=== PATIENT | male | born 1965 | race Caucasian/White ===

== ENCOUNTER 2021-11-06 17:29 | Emergency (ER) | payer OTHER ==
[~2021-11-06] VITALS: Ht 175.3 cm; Wt 100.0 kg
[~2021-11-06 17:29] MED LIST: CEPH-558 PO
[2021-11-06 18:36] VITALS: BP 146/82
[2021-11-06] MEDS ORDERED: HALOPERIDOL 5 MG TABLET PO ONE (19:15)
[2021-11-06 19:57] LABS: AMPHET/METH SCREEN,URINE NEGATIVE (NEGATIVE); BARBITURATE SCREEN, URINE NEGATIVE (NEGATIVE); BENZODIAZEPINES SCREEN,URINE POSITIVE (NEGATIVE); CANNABINOID SCREEN,URINE NEGATIVE (NEGATIVE); COCAINE SCREEN,URINE NEGATIVE (NEGATIVE); METHADONE SCREEN, URINE POSITIVE (NEGATIVE); OPIATE SCREEN,URINE NEGATIVE (NEGATIVE)
[2021-11-06 19:58] LABS: PHENCYCLIDINE SCREEN,URINE NEGATIVE (NEGATIVE)
== END 2021-11-06 20:13 | disposition home or self-care (01) ==
LOC: EMS 17:29
DX: F29 Unspecified psychosis not due to a substance or known physiological condition (principal); F15.10 Other stimulant abuse, uncomplicated; F17.210 Nicotine dependence, cigarettes, uncomplicated; F11.90 Opioid use, unspecified, uncomplicated; Z87.19 Personal history of other diseases of the digestive system; Z86.79 Personal history of other diseases of the circulatory system
CPT/HCPCS: 99284

== ENCOUNTER 2021-12-18 13:52 | Emergency (ER) | payer OTHER ==
[~2021-12-18] VITALS: Ht 175.3 cm; Wt 95.5 kg
[2021-12-18] MEDS ORDERED: METOCLOPRAMIDE HCL 5 MG/ML 2 ML VIAL IVP ONE (16:00)
[2021-12-18] MEDS ORDERED: DiphenhydrAMINE HCL 50 MG/ML VIAL IVP ONE (16:00)
[2021-12-18] MEDS ORDERED: SODIUM CHLORIDE 0.9% 1,000 ML IV ONE (16:00)
[2021-12-18 19:38] VITALS: BP 127/95
[2021-12-18] MEDS ORDERED: HYDR25TA PO (19:39)
[2021-12-18] MEDS ORDERED: HYDROCHLOROTHIAZIDE 25 MG TABLET PO ONE (19:45)
== END 2021-12-18 20:22 | disposition home or self-care (01) ==
LOC: EMS 13:52
DX: R51.9 Headache, unspecified (principal); I10 Essential (primary) hypertension; F11.90 Opioid use, unspecified, uncomplicated; F17.210 Nicotine dependence, cigarettes, uncomplicated
CPT/HCPCS: 70450; 96361; 96374; 96375; 99284; J1200; J2765; J7030

== ENCOUNTER 2022-07-19 14:51 | Emergency (ER) | payer OTHER ==
[~2022-07-19] VITALS: Ht 175.3 cm; Wt 104.5 kg
[~2022-07-19 14:51] MED LIST changes: +HYDR25TA PO
[2022-07-19 14:52] VITALS: BP 150/108
[2022-07-19] MEDS ORDERED: METH5SOL3 PO (15:40)
[2022-07-19 16:00] LABS: BASOPHILS % (AUTO) 0.7 % (0.0-2.0); EOSINOPHILS % (AUTO) 0.7 % (1.0-6.0); HEMATOCRIT 41.7 % (41-53); HEMOGLOBIN 14.1 g/dL (13.5-17.5); LYMPHOCYTES # (AUTO) 1.4 K/uL (1.0-4.8); LYMPHOCYTES % (AUTO) 15.8 % (22.0-44.0); MEAN CORPUSCULAR HGB CONC 33.9 G/dL (31.0-37.0); MEAN CORPUSCULAR VOLUME 91 fL (80-100); MONOCYTES # (AUTO) 1.2 K/uL (0.1-1.0); MONOCYTES % (AUTO) 13.2 % (2.0-9.0); NEUTROPHILS # (AUTO) 6.4 K/uL (1.8-7.7); NEUTROPHILS % (AUTO) 69.6 % (40.0-70.0); PLATELET COUNT (AUTO) 171 K/uL (150-450); RED BLOOD CELL COUNT(AUTO) 4.56 MIL/uL (4.50-5.90); RED CELL DISTRIBUTION WIDTH 13.4 % (11.5-14.5)
[2022-07-19 16:05] LABS: ANION GAP 7 mmol/L (8-16); CALCIUM, TOTAL 8.7 mg/dL (8.8-10.5); CARBON DIOXIDE 25 mmol/L (22-29); CHLORIDE 103 mmol/L (98-107); CREATININE 1.17 mg/dL (0.60-1.30); GLOMERULAR FILTR. RATE CALC > 60 mL/min (>60); GLUCOSE,RANDOM 105 mg/dL (70-110); POTASSIUM 3.4 mmol/L (3.5-5.1); SODIUM SERUM 135 mmol/L (136-145); UREA NITROGEN, BLOOD 18 mg/dL (7-18)
[2022-07-19 16:11] LABS: ALANINE AMINOTRANSFERASE 37 U/L (12-78); ALBUMIN 3.4 g/dL (3.4-5.0); ALKALINE PHOSPHATASE 97 U/L (46-116); ASPARTATE AMINOTRANSFERASE 41 U/L (15-37); BILIRUBIN,TOTAL 0.5 mg/dL (0.1-1.0); TOTAL PROTEIN, SERUM 8.4 g/dL (6.4-8.2)
[2022-07-19] MEDS ORDERED: OLANZapine 5 MG TABLET PO ONE (17:00)
== END 2022-07-19 18:12 | disposition home or self-care (01) ==
LOC: EMS 14:55
DX: F32.A Depression, unspecified (principal); F20.9 Schizophrenia, unspecified; F17.210 Nicotine dependence, cigarettes, uncomplicated; F11.90 Opioid use, unspecified, uncomplicated; I21.9 Acute myocardial infarction, unspecified
CPT/HCPCS: 99284; 80053; 85025; 36415; G0480

== ENCOUNTER 2022-08-16 01:15 | Emergency (ER) | payer OTHER ==
[~2022-08-16] VITALS: Ht 175.3 cm; Wt 118.2 kg
[~2022-08-16 01:15] MED LIST changes: -CEPH-558 PO; -HYDR25TA PO; +METH5SOL3 PO
[2022-08-16 01:53] VITALS: BP 148/108
[2022-08-16 02:04] LABS: BASOPHILS % (AUTO) 0.7 % (0.0-2.0); EOSINOPHILS % (AUTO) 0.1 % (1.0-6.0); HEMATOCRIT 45.7 % (41-53); LYMPHOCYTES # (AUTO) 0.8 K/uL (1.0-4.8); LYMPHOCYTES % (AUTO) 10.1 % (22.0-44.0); MEAN CORPUSCULAR HEMOGLOBIN 31.5 pg (26.0-34.0); MEAN CORPUSCULAR VOLUME 90 fL (80-100); MONOCYTES # (AUTO) 0.4 K/uL (0.1-1.0); MONOCYTES % (AUTO) 4.7 % (2.0-9.0); NEUTROPHILS # (AUTO) 6.4 K/uL (1.8-7.7); NEUTROPHILS % (AUTO) 84.4 % (40.0-70.0); PLATELET COUNT (AUTO) 158 K/uL (150-450); RED BLOOD CELL COUNT(AUTO) 5.08 MIL/uL (4.50-5.90); RED CELL DISTRIBUTION WIDTH 13.8 % (11.5-14.5)
[2022-08-16 02:10] LABS: ANION GAP 10 mmol/L (8-16); CALCIUM, TOTAL 9.5 mg/dL (8.8-10.5); CARBON DIOXIDE 26 mmol/L (22-29); CHLORIDE 104 mmol/L (98-107); CREATININE 1.16 mg/dL (0.60-1.30); GLOMERULAR FILTR. RATE CALC > 60 mL/min (>60); GLUCOSE,RANDOM 116 mg/dL (70-110); POTASSIUM 4.1 mmol/L (3.5-5.1); SODIUM SERUM 140 mmol/L (136-145); UREA NITROGEN, BLOOD 18 mg/dL (7-18)
[2022-08-16] MEDS ORDERED: LORazepam 1 MG TABLET PO ONE (02:15)
[2022-08-16 02:16] LABS: ALANINE AMINOTRANSFERASE 38 U/L (12-78); ALKALINE PHOSPHATASE 83 U/L (46-116); ASPARTATE AMINOTRANSFERASE 35 U/L (15-37); BILIRUBIN,TOTAL 0.7 mg/dL (0.1-1.0); CREATINE KINASE, TOTAL ONLY 74 U/L (39-308); TOTAL PROTEIN, SERUM 9.3 g/dL (6.4-8.2)
[2022-08-16 02:18] LABS: COVID AG,FIA SOURCE NASOPHARYNGEAL
[2022-08-16 02:46] LABS: B-TYPE NATRIURETIC PEPTIDE 38 pg/mL (0-100)
== END 2022-08-16 03:05 | disposition home or self-care (01) ==
LOC: EMS 01:16
DX: F41.9 Anxiety disorder, unspecified (principal); F32.A Depression, unspecified; F20.9 Schizophrenia, unspecified; R07.89 Other chest pain; F17.210 Nicotine dependence, cigarettes, uncomplicated; I25.2 Old myocardial infarction; F11.90 Opioid use, unspecified, uncomplicated; Z20.822 Contact with and (suspected) exposure to COVID-19
CPT/HCPCS: 99285; 71045; 87426; 80053; 82550; 83880; 84484; 85025; 36415; 93005; G0480

== ENCOUNTER 2023-04-07 06:44 | Inpatient (IN) | payer MEDICAID, OTHER ==
[2023-04-07] VITALS (10 sets, daily range): BP systolic 102–173; BP diastolic 66–89; PULSE 64–88; RESP 17–19; TEMP 97.6–97.8; O2SAT 93–99
[~2023-04-07] VITALS: Ht 175.3 cm; Wt 108.0 kg
[2023-04-07 07:46] LABS: COVID AG,FIA SOURCE NASAL SWAB
[2023-04-07 08:12] LABS: BASOPHILS % (AUTO) 0.4 % (0.0-2.0); EOSINOPHILS % (AUTO) 2.3 % (1.0-6.0); HEMATOCRIT 42.4 % (41-53); HEMOGLOBIN 14.4 g/dL (13.5-17.5); LYMPHOCYTES # (AUTO) 1.5 K/uL (1.0-4.8); LYMPHOCYTES % (AUTO) 16.2 % (22.0-44.0); MEAN CORPUSCULAR HEMOGLOBIN 31.5 pg (26.0-34.0); MEAN CORPUSCULAR VOLUME 93 fL (80-100); MONOCYTES # (AUTO) 0.9 K/uL (0.1-1.0); NEUTROPHILS # (AUTO) 6.5 K/uL (1.8-7.7); NEUTROPHILS % (AUTO) 71.1 % (40.0-70.0); PLATELET COUNT (AUTO) 171 K/uL (150-450); RED BLOOD CELL COUNT(AUTO) 4.57 MIL/uL (4.50-5.90); RED CELL DISTRIBUTION WIDTH 13.3 % (11.5-14.5); WHITE BLOOD COUNT (AUTO) 9.1 K/uL (4.5-11.0)
[2023-04-07 08:17] LABS: ANION GAP 10 mmol/L (8-16); CALCIUM, TOTAL 8.9 mg/dL (8.8-10.5); CARBON DIOXIDE 25 mmol/L (22-29); CHLORIDE 102 mmol/L (98-107); CREATININE 1.04 mg/dL (0.60-1.30); GLOMERULAR FILTR. RATE CALC > 60 mL/min (>60); GLUCOSE,RANDOM 95 mg/dL (70-110); POTASSIUM 3.4 mmol/L (3.5-5.1); SODIUM SERUM 137 mmol/L (136-145); UREA NITROGEN, BLOOD 25 mg/dL (7-18)
[2023-04-07 08:23] LABS: ALANINE AMINOTRANSFERASE 24 U/L (12-78); ALBUMIN 3.2 g/dL (3.4-5.0); ALKALINE PHOSPHATASE 85 U/L (46-116); ASPARTATE AMINOTRANSFERASE 25 U/L (15-37); BILIRUBIN,TOTAL 0.8 mg/dL (0.1-1.0); LIPASE 14 U/L (16-77); TOTAL PROTEIN, SERUM 7.3 g/dL (6.4-8.2)
[2023-04-07 08:25] LABS: LACTIC ACID 1.3 mmol/L (0.4-2.0); TROPONIN I-HIGH SENSITIVITY 10 ng/L (<76)
[2023-04-07 08:30] LABS: ALCOHOL, BLOOD (SERUM) < 3 mg/dL (0-10)
[2023-04-07 08:30] LABS: SARS-COV2 (COVID) ANTIGEN,FIA Negative (Negative)
[2023-04-07] MEDS ORDERED: POTASSIUM CHLORIDE 10% 40 MEQ/30 ML LIQUID UDCUP PO ONE (09:00)
[2023-04-07] MEDS ORDERED: ChlordiazePOXIDE HCL 25 MG CAPSULE PO ONE (09:00)
[2023-04-07] MEDS: THIAMINE 100 MG TABLET PO SCH (09:25)
[2023-04-07] MEDS: MULTIVITAMINS, THERAPEUTIC TABLET PO SCH (09:25)
[2023-04-07] MEDS: FOLIC ACID 1 MG TABLET PO SCH ×2 (09:25→12:59)
[2023-04-07] MEDS ORDERED: PNEUMOCOCCAL VACCINE POLYVALENT 0.5 ML SYRINGE [PPSV23] IM. ONE (13:15)
[2023-04-07] MEDS ORDERED: ACETAMINOPHEN 325 MG TABLET PO PRN (15:00)
[2023-04-07] MEDS ORDERED: PETROLATUM,WHITE 28 GM JELLY TP PRN (15:00)
[2023-04-07] MEDS ORDERED: CloNIDine HCL 0.1 MG TABLET PO PRN (15:00)
[2023-04-07] MEDS ORDERED: IBUPROFEN 400 MG TABLET PO PRN (15:00)
[2023-04-07] MEDS ORDERED: GuaiFENesin/D-METHORPHAN [SUGAR-FREE] 200-20MG/10 ML SYRUP UDCUP PO PRN (15:00)
[2023-04-07] MEDS ORDERED: DOCUSATE SODIUM 100 MG CAPSULE PO PRN (15:00)
[2023-04-07] MEDS ORDERED: ALBUTEROL SULFATE HFA 90 MCG/PUFF 8 GM INHALER IH PRN (15:00)
[2023-04-07] MEDS ORDERED: NICOTINE 14 MG/24 HOUR PATCH TD PRN (15:00)
[2023-04-07] MEDS ORDERED: ONDANSETRON HCL 4 MG TABLET PO PRN (15:00)
[2023-04-07] MEDS ORDERED: MAG HYDROX/ALUMINUM HYD/SIMETH ES 30 ML SUSPENSION UDCUP PO PRN (15:00)
[2023-04-07] MEDS: LOPERAMIDE HCL 2 MG CAPSULE PO PRN (16:28)
[2023-04-07] MEDS: ChlordiazePOXIDE HCL 25 MG CAPSULE PO PRN ×2 (16:28→21:06)
[2023-04-08 03:50] VITALS: BP 128/78; PULSE 77; RESP 18; TEMP 97.6; O2SAT 97
[2023-04-08 04:52] VITALS: BP 135/85; PULSE 77; RESP 18; TEMP 97.6; O2SAT 98
[2023-04-08] MEDS: ChlordiazePOXIDE HCL 25 MG CAPSULE PO PRN (04:57)
[2023-04-08] MEDS ORDERED: ChlordiazePOXIDE HCL 25 MG CAPSULE PO PRN (07:00)
[2023-04-08 07:50] VITALS: BP 114/64; PULSE 68; RESP 18; TEMP 97.9; O2SAT 100
[2023-04-08 08:07] VITALS: BP 114/64; PULSE 68; RESP 18; TEMP 97.9; O2SAT 100
[2023-04-08] MEDS: THIAMINE 100 MG TABLET PO SCH (08:38)
[2023-04-08] MEDS: MULTIVITAMINS, THERAPEUTIC TABLET PO SCH (08:38)
[2023-04-08] MEDS: ChlordiazePOXIDE HCL 25 MG CAPSULE PO SCH ×4 (08:38→20:35)
[2023-04-08] MEDS: LOPERAMIDE HCL 2 MG CAPSULE PO PRN ×2 (08:50→16:50)
[2023-04-08] MEDS: METHADONE HCL 10 MG/5 ML SOLUTION ORAL.SYG PO SCH (09:00)
[2023-04-08 11:50] VITALS: BP 121/75; PULSE 69; RESP 18; TEMP 98.2; O2SAT 99
[2023-04-08] MEDS ORDERED: POTASSIUM CHLORIDE 20 MEQ ER TABLET PO ONE (16:00)
[2023-04-08 20:08] VITALS: BP 138/80; PULSE 64; RESP 18; TEMP 98; O2SAT 98
[2023-04-09 08:29] VITALS: BP 142/86; PULSE 68; RESP 18; TEMP 98.1; O2SAT 96
[2023-04-09 08:34] LABS: CHOL/HDL RATIO 2.4 (4.2-7.3); POTASSIUM 3.5 mmol/L (3.5-5.1)
[2023-04-09] MEDS: METHADONE HCL 10 MG/5 ML SOLUTION ORAL.SYG PO SCH (09:01)
[2023-04-09] MEDS: FOLIC ACID 1 MG TABLET PO SCH (09:02)
[2023-04-09] MEDS: MULTIVITAMINS, THERAPEUTIC TABLET PO SCH (09:02)
[2023-04-09] MEDS: ChlordiazePOXIDE HCL 25 MG CAPSULE PO SCH ×4 (09:02→20:23)
[2023-04-09] MEDS: THIAMINE 100 MG TABLET PO SCH (09:02)
[2023-04-09 09:24] LABS: THYROID STIMULATING HORMONE 1.08 uIU/mL (0.36-3.74)
[2023-04-09 21:12] VITALS: BP 150/77; PULSE 18; RESP 18; TEMP 97.5; O2SAT 60
[2023-04-10] MEDS ORDERED: ChlordiazePOXIDE HCL 10 MG CAPSULE PO PRN (07:00)
[2023-04-10 08:10] LABS: APPEARANCE,URINE TURBID (CLEAR); BILIRUBIN,URINE NEGATIVE (NEGATIVE); COLOR,URINE ORANGE (YELLOW); GLUCOSE, URINE (UA) NEGATIVE (NEGATIVE); KETONES,URINE NEGATIVE (NEGATIVE); LEUKOCYTE ESTERASE ,URINE NEGATIVE (NEGATIVE); NITRATE,URINE NEGATIVE (NEGATIVE); OCCULT BLOOD,URINE NEGATIVE (NEGATIVE); PROTEIN,URINE 30-70 mg/dL (NEGATIVE); SPECIFIC GRAVITIY, URINE 1.035 (1.003-1.030)
[2023-04-10 08:16] LABS: ALCOHOL, URINE DRUG SCREEN NEGATIVE (NEGATIVE); AMPHET/METH SCREEN,URINE POSITIVE (NEGATIVE); BARBITURATE SCREEN, URINE NEGATIVE (NEGATIVE); BENZODIAZEPINES SCREEN,URINE POSITIVE (NEGATIVE); CANNABINOID SCREEN,URINE NEGATIVE (NEGATIVE); COCAINE SCREEN,URINE NEGATIVE (NEGATIVE); METHADONE SCREEN, URINE POSITIVE (NEGATIVE); OPIATE SCREEN,URINE NEGATIVE (NEGATIVE); PHENCYCLIDINE SCREEN,URINE NEGATIVE (NEGATIVE)
[2023-04-10 08:40] VITALS: BP 140/82; PULSE 88; RESP 18; TEMP 97.9; O2SAT 77
[2023-04-10] MEDS: MULTIVITAMINS, THERAPEUTIC TABLET PO SCH (09:39)
[2023-04-10] MEDS: ChlordiazePOXIDE HCL 10 MG CAPSULE PO SCH ×4 (09:39→21:28)
[2023-04-10] MEDS: THIAMINE 100 MG TABLET PO SCH (09:39)
[2023-04-10] MEDS: FOLIC ACID 1 MG TABLET PO SCH (09:39)
[2023-04-10] MEDS: METHADONE HCL 10 MG/5 ML SOLUTION ORAL.SYG PO SCH (09:52)
[2023-04-10 20:01] VITALS: BP 138/60; PULSE 91; RESP 17; TEMP 97.6; O2SAT 99
[2023-04-11] MEDS: FOLIC ACID 1 MG TABLET PO SCH (08:02)
[2023-04-11] MEDS: THIAMINE 100 MG TABLET PO SCH (08:02)
[2023-04-11] MEDS: METHADONE HCL 10 MG/5 ML SOLUTION ORAL.SYG PO SCH (08:02)
[2023-04-11] MEDS: MULTIVITAMINS, THERAPEUTIC TABLET PO SCH (08:02)
[2023-04-11 08:42] VITALS: BP 141/74; PULSE 65; RESP 18; TEMP 98.1; O2SAT 99
[2023-04-11] MEDS: ChlordiazePOXIDE HCL 10 MG CAPSULE PO PRN ×2 (16:46→23:15)
[2023-04-11 20:28] VITALS: BP 136/85; PULSE 65; RESP 18; TEMP 97.8; O2SAT 96
[2023-04-12 08:06] VITALS: BP 117/87; PULSE 67; RESP 19; TEMP 97.9; O2SAT 97
[2023-04-12] MEDS: MULTIVITAMINS, THERAPEUTIC TABLET PO SCH (08:54)
[2023-04-12] MEDS: THIAMINE 100 MG TABLET PO SCH (08:54)
[2023-04-12] MEDS: FOLIC ACID 1 MG TABLET PO SCH (08:54)
[2023-04-12] MEDS: METHADONE HCL 10 MG/5 ML SOLUTION ORAL.SYG PO SCH (08:54)
[2023-04-12 22:02] VITALS: BP 140/89; PULSE 67; RESP 18; TEMP 97.7; O2SAT 98
[2023-04-12] MEDS: HALOPERIDOL 5 MG TABLET PO PRN (22:20)
[2023-04-13] MEDS: METHADONE HCL 10 MG/5 ML SOLUTION ORAL.SYG PO SCH (08:31)
[2023-04-13] MEDS: MULTIVITAMINS, THERAPEUTIC TABLET PO SCH (08:32)
[2023-04-13] MEDS: THIAMINE 100 MG TABLET PO SCH (08:32)
[2023-04-13] MEDS: FOLIC ACID 1 MG TABLET PO SCH (08:32)
[2023-04-13 09:10] VITALS: BP 111/88; PULSE 69; RESP 17; TEMP 97.5; O2SAT 98
[2023-04-13 20:03] VITALS: BP 112/69; PULSE 66; RESP 18; TEMP 97.9; O2SAT 98
[2023-04-13] MEDS: MIRTAZAPINE 15 MG TABLET PO SCH (20:28)
[2023-04-14 08:12] VITALS: BP 118/76; PULSE 74; RESP 17; TEMP 97.8; O2SAT 96
[2023-04-14] MEDS: THIAMINE 100 MG TABLET PO SCH (08:36)
[2023-04-14] MEDS: MULTIVITAMINS, THERAPEUTIC TABLET PO SCH (08:36)
[2023-04-14] MEDS: FOLIC ACID 1 MG TABLET PO SCH (08:36)
[2023-04-14] MEDS: METHADONE HCL 10 MG/5 ML SOLUTION ORAL.SYG PO SCH (08:37)
[2023-04-14] MEDS: MAGNESIUM HYDROXIDE SUSPENSION 30 ML UDCUP PO PRN (08:45)
[2023-04-14] MEDS: MIRTAZAPINE 15 MG TABLET PO SCH (20:38)
[2023-04-14 21:24] VITALS: BP 125/69; PULSE 70; RESP 16; TEMP 97.7; O2SAT 95
[2023-04-15] MEDS: THIAMINE 100 MG TABLET PO SCH (08:07)
[2023-04-15] MEDS: MULTIVITAMINS, THERAPEUTIC TABLET PO SCH (08:07)
[2023-04-15] MEDS: FOLIC ACID 1 MG TABLET PO SCH (08:08)
[2023-04-15] MEDS: METHADONE HCL 10 MG/5 ML SOLUTION ORAL.SYG PO SCH (08:08)
[2023-04-15 08:14] VITALS: BP 117/66; PULSE 66; RESP 18; TEMP 97.8; O2SAT 97
[2023-04-15 20:27] VITALS: BP 122/47; PULSE 77; RESP 18; TEMP 97.9; O2SAT 97
[2023-04-15] MEDS: MIRTAZAPINE 15 MG TABLET PO SCH (20:57)
[2023-04-16 08:05] VITALS: BP 126/90; PULSE 62; RESP 18; TEMP 97.8; O2SAT 95
[2023-04-16] MEDS: THIAMINE 100 MG TABLET PO SCH (08:34)
[2023-04-16] MEDS: MULTIVITAMINS, THERAPEUTIC TABLET PO SCH (08:34)
[2023-04-16] MEDS: FOLIC ACID 1 MG TABLET PO SCH (08:34)
[2023-04-16] MEDS: METHADONE HCL 10 MG/5 ML SOLUTION ORAL.SYG PO SCH (08:35)
[2023-04-16] MEDS: HALOPERIDOL 5 MG TABLET PO PRN (16:50)
[2023-04-16 20:13] VITALS: BP 123/82; PULSE 74; RESP 18; TEMP 98.2; O2SAT 98
[2023-04-16] MEDS: MIRTAZAPINE 15 MG TABLET PO SCH (20:43)
[2023-04-17] MEDS: MULTIVITAMINS, THERAPEUTIC TABLET PO SCH (07:53)
[2023-04-17] MEDS: THIAMINE 100 MG TABLET PO SCH (07:53)
[2023-04-17] MEDS: FOLIC ACID 1 MG TABLET PO SCH (07:53)
[2023-04-17] MEDS: METHADONE HCL 10 MG/5 ML SOLUTION ORAL.SYG PO SCH (07:54)
[2023-04-17 08:10] VITALS: BP 117/78; PULSE 66; RESP 18; TEMP 97.7; O2SAT 96
[2023-04-17] MEDS: MIRTAZAPINE 15 MG TABLET PO SCH (20:16)
[2023-04-17 20:17] VITALS: BP 119/19; PULSE 73; RESP 19; TEMP 98.1; O2SAT 93
[2023-04-18 08:39] VITALS: BP 138/76; PULSE 70; RESP 16; TEMP 97.2; O2SAT 96
[2023-04-18] MEDS: THIAMINE 100 MG TABLET PO SCH (08:41)
[2023-04-18] MEDS: MULTIVITAMINS, THERAPEUTIC TABLET PO SCH (08:41)
[2023-04-18] MEDS: FOLIC ACID 1 MG TABLET PO SCH (08:41)
[2023-04-18] MEDS: METHADONE HCL 10 MG/5 ML SOLUTION ORAL.SYG PO SCH (10:06)
[2023-04-18] MEDS: MAGNESIUM HYDROXIDE SUSPENSION 30 ML UDCUP PO PRN (16:43)
[2023-04-18 20:05] VITALS: BP 131/70; PULSE 67; RESP 18; TEMP 97.9; O2SAT 96
[2023-04-18] MEDS: MIRTAZAPINE 15 MG TABLET PO SCH (20:32)
[2023-04-18] MEDS: HALOPERIDOL 5 MG TABLET PO PRN (21:31)
[2023-04-19 08:20] VITALS: BP 148/96; PULSE 75; RESP 16; TEMP 97.6; O2SAT 96
[2023-04-19] MEDS: MULTIVITAMINS, THERAPEUTIC TABLET PO SCH (08:28)
[2023-04-19] MEDS: THIAMINE 100 MG TABLET PO SCH (08:28)
[2023-04-19] MEDS: FOLIC ACID 1 MG TABLET PO SCH (08:28)
[2023-04-19] MEDS: METHADONE HCL 10 MG/5 ML SOLUTION ORAL.SYG PO SCH (08:29)
[2023-04-19 20:13] VITALS: BP 122/74; PULSE 68; RESP 20; TEMP 98; O2SAT 94
[2023-04-19] MEDS: MIRTAZAPINE 15 MG TABLET PO SCH (20:14)
[2023-04-19] MEDS: HALOPERIDOL 5 MG TABLET PO PRN (20:53)
[2023-04-20 08:25] VITALS: BP 119/92; PULSE 78; RESP 18; TEMP 98.7; O2SAT 90
[2023-04-20] MEDS: MULTIVITAMINS, THERAPEUTIC TABLET PO SCH (08:51)
[2023-04-20] MEDS: METHADONE HCL 10 MG/5 ML SOLUTION ORAL.SYG PO SCH (08:51)
[2023-04-20] MEDS: THIAMINE 100 MG TABLET PO SCH (08:52)
[2023-04-20] MEDS: FOLIC ACID 1 MG TABLET PO SCH (08:52)
[2023-04-20 20:02] VITALS: BP 111/70; PULSE 68; RESP 18; TEMP 98.1; O2SAT 96
[2023-04-20] MEDS: MIRTAZAPINE 15 MG TABLET PO SCH (21:11)
[2023-04-21 08:17] VITALS: BP 129/88; PULSE 74; RESP 19; TEMP 98; O2SAT 96
[2023-04-21] MEDS: THIAMINE 100 MG TABLET PO SCH (09:45)
[2023-04-21] MEDS: MULTIVITAMINS, THERAPEUTIC TABLET PO SCH (09:45)
[2023-04-21] MEDS: FOLIC ACID 1 MG TABLET PO SCH (09:45)
[2023-04-21] MEDS: METHADONE HCL 10 MG/5 ML SOLUTION ORAL.SYG PO SCH (16:13)
[2023-04-21 20:23] VITALS: BP 130/85; PULSE 70; RESP 17; TEMP 97.9; O2SAT 99
[2023-04-21] MEDS: MIRTAZAPINE 15 MG TABLET PO SCH (21:44)
[2023-04-22 08:45] VITALS: BP 134/97; PULSE 86; RESP 17; TEMP 98.2; O2SAT 96
[2023-04-22] MEDS: THIAMINE 100 MG TABLET PO SCH (09:01)
[2023-04-22] MEDS: FOLIC ACID 1 MG TABLET PO SCH (09:01)
[2023-04-22] MEDS: MULTIVITAMINS, THERAPEUTIC TABLET PO SCH (09:01)
[2023-04-22] MEDS: METHADONE HCL 10 MG/5 ML SOLUTION ORAL.SYG PO SCH (09:01)
[2023-04-22] MEDS ORDERED: FOLI-130 PO (11:17)
[2023-04-22] MEDS ORDERED: THIA100T80 PO (11:17)
[2023-04-22] MEDS ORDERED: MIRT-89 PO (11:17)
== END 2023-04-22 19:00 | disposition home or self-care (01) | DRG 751 ==
LOC: EMS 06:45 → B2S 10:18
PROVIDERS: ADMIT Psychiatry & Neurology Child & Adolescent Psychiatry; ATTEND Psychiatry & Neurology Child & Adolescent Psychiatry
DX: F33.2 Major depressive disorder, recurrent severe without psychotic features (principal); E44.0 Moderate protein-calorie malnutrition; K74.60 Unspecified cirrhosis of liver; E87.6 Hypokalemia; F20.9 Schizophrenia, unspecified; F41.9 Anxiety disorder, unspecified; Z20.822 Contact with and (suspected) exposure to COVID-19; F17.210 Nicotine dependence, cigarettes, uncomplicated; G47.00 Insomnia, unspecified; F10.239 Alcohol dependence with withdrawal, unspecified; Z59.00 Homelessness unspecified; I25.2 Old myocardial infarction; Z79.899 Other long term (current) drug therapy; Z68.35 Body mass index [BMI] 35.0-35.9, adult
CPT/HCPCS: 80053; 80061; 80307; 81003; 83036; 83605; 83690; 84132; 84443; 84484; 85025; 99285; G0480

== ENCOUNTER 2023-05-21 14:13 | Inpatient (IN) | payer MEDICAID, OTHER ==
[~2023-05-21] VITALS: Ht 175.3 cm; Wt 105.9 kg
[~2023-05-21 14:13] MED LIST changes: +FOLI-130 PO; -METH5SOL3 PO; +MIRT-89 PO; +THIA100T80 PO
[2023-05-21] MEDS ORDERED: LORazepam 2 MG TABLET PO PRN (15:00)
[2023-05-21] MEDS ORDERED: ChlordiazePOXIDE HCL 25 MG CAPSULE PO PRN (15:30)
[2023-05-21 16:06] LABS: COVID AG,FIA SOURCE NASAL SWAB
[2023-05-21 16:10] LABS: APPEARANCE,URINE CLEAR (CLEAR); BILIRUBIN,URINE NEGATIVE (NEGATIVE); COLOR,URINE LIGHT YELLOW (YELLOW); GLUCOSE, URINE (UA) NEGATIVE (NEGATIVE); KETONES,URINE NEGATIVE (NEGATIVE); LEUKOCYTE ESTERASE ,URINE NEGATIVE (NEGATIVE); NITRATE,URINE NEGATIVE (NEGATIVE); OCCULT BLOOD,URINE NEGATIVE (NEGATIVE); PROTEIN,URINE NEGATIVE (NEGATIVE); SPECIFIC GRAVITIY, URINE 1.011 (1.003-1.030)
[2023-05-21] MEDS: HALOPERIDOL 5 MG TABLET PO PRN (16:13)
[2023-05-21] MEDS ORDERED: LORazepam 2 MG TABLET PO ONE (16:15)
[2023-05-21] MEDS ORDERED: OMEPRAZOLE 20 MG CAPSULE PO ONE (16:15)
[2023-05-21] MEDS ORDERED: MAG HYDROX/ALUMINUM HYD/SIMETH ES 30 ML SUSPENSION UDCUP PO ONE (16:15)
[2023-05-21 16:16] LABS: SARS-COV2 (COVID) ANTIGEN,FIA Negative (Negative)
[2023-05-21] MEDS ORDERED: METH5SOL3 PO (16:21)
[2023-05-21 17:38] LABS: HEMOGLOBIN 16.3 g/dL (13.5-17.5); LYMPHOCYTES # (AUTO) 1.5 K/uL (1.0-4.8); LYMPHOCYTES % (AUTO) 21.4 % (22.0-44.0); MEAN CORPUSCULAR HGB CONC 34.6 G/dL (31.0-37.0); MEAN CORPUSCULAR VOLUME 93 fL (80-100); MONOCYTES # (AUTO) 0.7 K/uL (0.1-1.0); MONOCYTES % (AUTO) 9.4 % (2.0-9.0); NEUTROPHILS # (AUTO) 4.7 K/uL (1.8-7.7); NEUTROPHILS % (AUTO) 67.2 % (40.0-70.0); PLATELET COUNT (AUTO) 152 K/uL (150-450); RED BLOOD CELL COUNT(AUTO) 5.08 MIL/uL (4.50-5.90); RED CELL DISTRIBUTION WIDTH 13.7 % (11.5-14.5)
[2023-05-21 17:42] LABS: ANION GAP 4 mmol/L (8-16); CALCIUM, TOTAL 9.1 mg/dL (8.8-10.5); CARBON DIOXIDE 30 mmol/L (22-29); CHLORIDE 103 mmol/L (98-107); CREATININE 1.02 mg/dL (0.60-1.30); GLOMERULAR FILTR. RATE CALC > 60 mL/min (>60); GLUCOSE,RANDOM 81 mg/dL (70-110); POTASSIUM 3.9 mmol/L (3.5-5.1); SODIUM SERUM 137 mmol/L (136-145); UREA NITROGEN, BLOOD 13 mg/dL (7-18)
[2023-05-21 17:47] LABS: ALANINE AMINOTRANSFERASE 24 U/L (12-78); ALBUMIN 3.6 g/dL (3.4-5.0); ALKALINE PHOSPHATASE 99 U/L (46-116); ASPARTATE AMINOTRANSFERASE 28 U/L (15-37); BILIRUBIN,TOTAL 0.7 mg/dL (0.1-1.0); TOTAL PROTEIN, SERUM 8.5 g/dL (6.4-8.2)
[2023-05-21 18:00] LABS: ALCOHOL, BLOOD (SERUM) < 3 mg/dL (0-10)
[2023-05-21] MEDS: ZOLPIDEM TARTRATE 10 MG TABLET PO PRN (21:42)
[2023-05-21 22:28] VITALS: BP 117/89; PULSE 88; RESP 18; TEMP 97.5; O2SAT 98
[2023-05-21 22:30] VITALS: BP 117/89; PULSE 88; RESP 18; TEMP 97.5; O2SAT 98
[2023-05-21] MEDS ORDERED: PNEUMOCOCCAL VACCINE POLYVALENT 0.5 ML SYRINGE [PPSV23] IM. ONE (22:45)
[2023-05-21] MEDS ORDERED: INFLUENZA VIRUS VACCINE QVS 2023-24 (6MO+)/PF 60 MCG/0.5 ML SYRINGE IM. ONE (22:45)
[2023-05-22] VITALS (7 sets, daily range): BP systolic 128–147; BP diastolic 76–89; PULSE 58–71; RESP 17–19; TEMP 97.1–98.2; O2SAT 94–98
[2023-05-22] MEDS ORDERED: NICOTINE POLACRILEX 2 MG LOZENGE PO PRN (02:45)
[2023-05-22] MEDS ORDERED: ChlordiazePOXIDE HCL 25 MG CAPSULE PO PRN (07:00)
[2023-05-22] MEDS: MULTIVITAMINS, THERAPEUTIC TABLET PO SCH (08:42)
[2023-05-22] MEDS: THIAMINE 100 MG TABLET PO SCH (08:42)
[2023-05-22] MEDS: ChlordiazePOXIDE HCL 25 MG CAPSULE PO SCH ×4 (08:42→20:29)
[2023-05-22] MEDS: FOLIC ACID 1 MG TABLET PO SCH (08:42)
[2023-05-22] MEDS: OLANZapine 5 MG TABLET PO SCH (20:29)
[2023-05-22] MEDS: MIRTAZAPINE 15 MG TABLET PO SCH (20:29)
[2023-05-22 22:02] LABS: ALCOHOL, URINE DRUG SCREEN POSITIVE (NEGATIVE); AMPHET/METH SCREEN,URINE NEGATIVE (NEGATIVE); BARBITURATE SCREEN, URINE NEGATIVE (NEGATIVE); BENZODIAZEPINES SCREEN,URINE POSITIVE (NEGATIVE); CANNABINOID SCREEN,URINE NEGATIVE (NEGATIVE); COCAINE SCREEN,URINE NEGATIVE (NEGATIVE); METHADONE SCREEN, URINE POSITIVE (NEGATIVE); OPIATE SCREEN,URINE NEGATIVE (NEGATIVE); PHENCYCLIDINE SCREEN,URINE NEGATIVE (NEGATIVE)
[2023-05-23] VITALS (7 sets, daily range): BP systolic 112–136; BP diastolic 56–74; PULSE 64–86; RESP 17–18; TEMP 97.2–98.3; O2SAT 96–98
[2023-05-23] MEDS: FOLIC ACID 1 MG TABLET PO SCH (08:28)
[2023-05-23] MEDS: MULTIVITAMINS, THERAPEUTIC TABLET PO SCH (08:28)
[2023-05-23] MEDS: THIAMINE 100 MG TABLET PO SCH (08:28)
[2023-05-23] MEDS: ChlordiazePOXIDE HCL 25 MG CAPSULE PO SCH ×4 (08:28→20:24)
[2023-05-23] MEDS ORDERED: METHADONE HCL 10 MG TABLET PO SCH (09:00)
[2023-05-23] MEDS: METHADONE HCL 10 MG/5 ML SOLUTION ORAL.SYG PO SCH (09:43)
[2023-05-23] MEDS: MIRTAZAPINE 15 MG TABLET PO SCH (20:24)
[2023-05-23] MEDS: OLANZapine 5 MG TABLET PO SCH (20:24)
[2023-05-24] MEDS ORDERED: ChlordiazePOXIDE HCL 10 MG CAPSULE PO PRN (07:00)
[2023-05-24 08:44] VITALS: BP 132/71; PULSE 63; RESP 17; TEMP 98.3; O2SAT 98
[2023-05-24] MEDS: MULTIVITAMINS, THERAPEUTIC TABLET PO SCH (08:53)
[2023-05-24] MEDS: ChlordiazePOXIDE HCL 10 MG CAPSULE PO SCH ×4 (08:53→20:26)
[2023-05-24] MEDS: THIAMINE 100 MG TABLET PO SCH (08:53)
[2023-05-24] MEDS: FOLIC ACID 1 MG TABLET PO SCH (08:53)
[2023-05-24] MEDS: METHADONE HCL 10 MG/5 ML SOLUTION ORAL.SYG PO SCH (08:58)
[2023-05-24] MEDS: HALOPERIDOL 5 MG TABLET PO PRN (09:02)
[2023-05-24] MEDS: RisperiDONE 1 MG TABLET PO SCH ×2 (11:30→16:56)
[2023-05-24 15:28] VITALS: BP 126/68; PULSE 70; RESP 17; TEMP 98.4; O2SAT 98
[2023-05-24] MEDS: MIRTAZAPINE 15 MG TABLET PO SCH (20:26)
[2023-05-24] MEDS: ZOLPIDEM TARTRATE 10 MG TABLET PO PRN (20:48)
[2023-05-24 22:15] VITALS: BP 117/77; PULSE 99; RESP 18; TEMP 98.4; O2SAT 98
[2023-05-25] MEDS ORDERED: ChlordiazePOXIDE HCL 10 MG CAPSULE PO PRN (07:00)
[2023-05-25] MEDS: FOLIC ACID 1 MG TABLET PO SCH (09:12)
[2023-05-25] MEDS: THIAMINE 100 MG TABLET PO SCH (09:12)
[2023-05-25] MEDS: MULTIVITAMINS, THERAPEUTIC TABLET PO SCH (09:12)
[2023-05-25] MEDS: RisperiDONE 1 MG TABLET PO SCH ×2 (09:12→16:40)
[2023-05-25] MEDS: METHADONE HCL 10 MG/5 ML SOLUTION ORAL.SYG PO SCH (09:13)
[2023-05-25 10:56] VITALS: BP 115/81; PULSE 97; RESP 18; TEMP 98.1; O2SAT 96
[2023-05-25 20:47] VITALS: BP 143/74; PULSE 81; RESP 17; TEMP 98.2; O2SAT 77
[2023-05-25] MEDS: ZOLPIDEM TARTRATE 10 MG TABLET PO PRN (22:11)
[2023-05-25] MEDS: MIRTAZAPINE 15 MG TABLET PO SCH (22:15)
[2023-05-26] MEDS: THIAMINE 100 MG TABLET PO SCH (08:13)
[2023-05-26] MEDS: FOLIC ACID 1 MG TABLET PO SCH (08:13)
[2023-05-26] MEDS: METHADONE HCL 10 MG/5 ML SOLUTION ORAL.SYG PO SCH (08:13)
[2023-05-26] MEDS: MULTIVITAMINS, THERAPEUTIC TABLET PO SCH (08:13)
[2023-05-26] MEDS: RisperiDONE 1 MG TABLET PO SCH ×2 (08:13→16:36)
[2023-05-26 08:33] VITALS: BP 131/85; PULSE 81; RESP 18; TEMP 98.9; O2SAT 96
[2023-05-26 20:08] VITALS: BP 124/73; PULSE 82; RESP 18; TEMP 97.8
[2023-05-26] MEDS: ZOLPIDEM TARTRATE 10 MG TABLET PO PRN (20:20)
[2023-05-26] MEDS: MIRTAZAPINE 15 MG TABLET PO SCH (20:20)
[2023-05-27 08:46] VITALS: BP 128/74; PULSE 78; RESP 18; TEMP 98.4; O2SAT 99
[2023-05-27] MEDS: MULTIVITAMINS, THERAPEUTIC TABLET PO SCH (09:20)
[2023-05-27] MEDS: RisperiDONE 1 MG TABLET PO SCH ×2 (09:20→16:14)
[2023-05-27] MEDS: FOLIC ACID 1 MG TABLET PO SCH (09:21)
[2023-05-27] MEDS: THIAMINE 100 MG TABLET PO SCH (09:21)
[2023-05-27] MEDS: METHADONE HCL 10 MG/5 ML SOLUTION ORAL.SYG PO SCH (09:44)
[2023-05-27 15:34] VITALS: BP 111/63; PULSE 77; RESP 17; TEMP 97.8; O2SAT 98
[2023-05-27] MEDS: MIRTAZAPINE 15 MG TABLET PO SCH (20:00)
[2023-05-27 23:07] VITALS: BP 116/65; PULSE 80; RESP 18; TEMP 98.2; O2SAT 96
[2023-05-28 08:07] VITALS: BP 106/67; PULSE 75; RESP 18; TEMP 97.7; O2SAT 95
[2023-05-28] MEDS: THIAMINE 100 MG TABLET PO SCH (09:13)
[2023-05-28] MEDS: FOLIC ACID 1 MG TABLET PO SCH (09:13)
[2023-05-28] MEDS: RisperiDONE 1 MG TABLET PO SCH ×2 (09:13→16:12)
[2023-05-28] MEDS: MULTIVITAMINS, THERAPEUTIC TABLET PO SCH (09:14)
[2023-05-28] MEDS: METHADONE HCL 10 MG/5 ML SOLUTION ORAL.SYG PO SCH (09:14)
[2023-05-28] MEDS: HALOPERIDOL 5 MG TABLET PO PRN (16:12)
[2023-05-28 20:00] VITALS: BP 121/75; PULSE 71; RESP 18; TEMP 97.6; O2SAT 95
[2023-05-28] MEDS: MIRTAZAPINE 15 MG TABLET PO SCH (21:45)
[2023-05-29] MEDS: RisperiDONE 1 MG TABLET PO SCH ×2 (08:31→16:02)
[2023-05-29] MEDS: MULTIVITAMINS, THERAPEUTIC TABLET PO SCH (08:31)
[2023-05-29] MEDS: THIAMINE 100 MG TABLET PO SCH (08:31)
[2023-05-29] MEDS: FOLIC ACID 1 MG TABLET PO SCH (08:32)
[2023-05-29] MEDS: METHADONE HCL 10 MG/5 ML SOLUTION ORAL.SYG PO SCH (08:34)
[2023-05-29 08:54] VITALS: BP 123/79; PULSE 70; RESP 17; TEMP 98; O2SAT 95
[2023-05-29] MEDS: HALOPERIDOL 5 MG TABLET PO PRN (17:32)
[2023-05-29] MEDS: MIRTAZAPINE 15 MG TABLET PO SCH (20:00)
[2023-05-29 20:42] VITALS: BP 127/78; PULSE 67; RESP 18; TEMP 98; O2SAT 97
[2023-05-30] MEDS: HALOPERIDOL 5 MG TABLET PO PRN (03:08)
[2023-05-30 08:13] VITALS: BP 130/91; PULSE 75; RESP 17; TEMP 98; O2SAT 98
[2023-05-30] MEDS: MULTIVITAMINS, THERAPEUTIC TABLET PO SCH (08:43)
[2023-05-30] MEDS: THIAMINE 100 MG TABLET PO SCH (08:44)
[2023-05-30] MEDS: RisperiDONE 1 MG TABLET PO SCH ×2 (08:44→16:20)
[2023-05-30] MEDS: FOLIC ACID 1 MG TABLET PO SCH (08:44)
[2023-05-30] MEDS: METHADONE HCL 10 MG/5 ML SOLUTION ORAL.SYG PO SCH (08:46)
[2023-05-30] MEDS: MIRTAZAPINE 15 MG TABLET PO SCH (20:16)
[2023-05-30 20:19] VITALS: BP 126/80; PULSE 78; RESP 17; TEMP 98; O2SAT 99
[2023-05-30] MEDS: ZOLPIDEM TARTRATE 10 MG TABLET PO PRN (20:35)
[2023-05-31 08:12] VITALS: BP 146/90; PULSE 75; RESP 18; TEMP 98; O2SAT 97
[2023-05-31] MEDS: METHADONE HCL 10 MG/5 ML SOLUTION ORAL.SYG PO SCH (08:16)
[2023-05-31] MEDS: MULTIVITAMINS, THERAPEUTIC TABLET PO SCH (08:17)
[2023-05-31] MEDS: RisperiDONE 1 MG TABLET PO SCH ×2 (08:17→16:38)
[2023-05-31] MEDS: FOLIC ACID 1 MG TABLET PO SCH (08:18)
[2023-05-31] MEDS: THIAMINE 100 MG TABLET PO SCH (08:18)
[2023-05-31] MEDS: MIRTAZAPINE 15 MG TABLET PO SCH (20:34)
[2023-05-31 21:34] VITALS: BP 116/80; PULSE 88; RESP 18; TEMP 97.8; O2SAT 99
[2023-06-01 08:46] VITALS: BP 129/62; PULSE 68; RESP 18; TEMP 97.5; O2SAT 91
[2023-06-01] MEDS: METHADONE HCL 10 MG/5 ML SOLUTION ORAL.SYG PO SCH (09:45)
[2023-06-01] MEDS: MULTIVITAMINS, THERAPEUTIC TABLET PO SCH (09:45)
[2023-06-01] MEDS: THIAMINE 100 MG TABLET PO SCH (09:45)
[2023-06-01] MEDS: FOLIC ACID 1 MG TABLET PO SCH (09:45)
[2023-06-01] MEDS: RisperiDONE 1 MG TABLET PO SCH ×2 (09:45→17:45)
[2023-06-01 20:00] VITALS: BP 139/78; PULSE 75; RESP 16; TEMP 97; O2SAT 98
[2023-06-01] MEDS: MIRTAZAPINE 15 MG TABLET PO SCH (20:12)
[2023-06-02] MEDS: FOLIC ACID 1 MG TABLET PO SCH (08:23)
[2023-06-02] MEDS: METHADONE HCL 10 MG/5 ML SOLUTION ORAL.SYG PO SCH (08:23)
[2023-06-02] MEDS: RisperiDONE 1 MG TABLET PO SCH ×2 (08:24→16:10)
[2023-06-02] MEDS: THIAMINE 100 MG TABLET PO SCH (08:24)
[2023-06-02 08:32] VITALS: BP 125/80; PULSE 64; RESP 17; TEMP 97.8; O2SAT 95
[2023-06-02] MEDS: MULTIVITAMINS, THERAPEUTIC TABLET PO SCH (09:34)
[2023-06-02] MEDS: HydrOXYzine PAMOATE 25 MG CAPSULE PO PRN (16:10)
[2023-06-02 20:48] VITALS: BP 134/87; PULSE 86; RESP 18; TEMP 97.9
[2023-06-02] MEDS: MIRTAZAPINE 15 MG TABLET PO SCH (21:16)
[2023-06-03] MEDS: MULTIVITAMINS, THERAPEUTIC TABLET PO SCH (08:24)
[2023-06-03] MEDS: RisperiDONE 1 MG TABLET PO SCH ×2 (08:25→16:26)
[2023-06-03] MEDS: FOLIC ACID 1 MG TABLET PO SCH (08:25)
[2023-06-03] MEDS: METHADONE HCL 10 MG/5 ML SOLUTION ORAL.SYG PO SCH (08:25)
[2023-06-03] MEDS: THIAMINE 100 MG TABLET PO SCH (08:25)
[2023-06-03 08:26] VITALS: BP 126/77; PULSE 71; RESP 17; TEMP 97.4; O2SAT 98
[2023-06-03 08:29] VITALS: BP 126/77; PULSE 71; RESP 17; TEMP 97.4; O2SAT 98
[2023-06-03] MEDS: MIRTAZAPINE 15 MG TABLET PO SCH (20:27)
[2023-06-03 21:20] VITALS: BP 121/83; PULSE 80; RESP 18; TEMP 98.2; O2SAT 95
[2023-06-04] MEDS: HydrOXYzine PAMOATE 25 MG CAPSULE PO PRN ×3 (00:06→20:54)
[2023-06-04] MEDS: RisperiDONE 1 MG TABLET PO SCH ×2 (08:18→16:23)
[2023-06-04] MEDS: THIAMINE 100 MG TABLET PO SCH (08:19)
[2023-06-04] MEDS: MULTIVITAMINS, THERAPEUTIC TABLET PO SCH (08:19)
[2023-06-04] MEDS: FOLIC ACID 1 MG TABLET PO SCH (08:19)
[2023-06-04] MEDS ORDERED: METHADONE HCL 10 MG/5 ML SOLUTION ORAL.SYG PO SCH (09:00)
[2023-06-04 09:53] VITALS: BP 129/80; PULSE 69; RESP 16; TEMP 97.6; O2SAT 95
[2023-06-04] MEDS: HALOPERIDOL 5 MG TABLET PO PRN (16:46)
[2023-06-04] MEDS: MIRTAZAPINE 15 MG TABLET PO SCH (20:08)
[2023-06-04 20:49] VITALS: BP 140/97; PULSE 77; RESP 18; TEMP 97.7; O2SAT 98
[2023-06-05 02:03] VITALS: BP 130/79; RESP 18
[2023-06-05] MEDS: HALOPERIDOL 5 MG TABLET PO PRN (02:03)
[2023-06-05] MEDS: FOLIC ACID 1 MG TABLET PO SCH (08:42)
[2023-06-05] MEDS: HydrOXYzine PAMOATE 25 MG CAPSULE PO PRN ×3 (08:42→21:45)
[2023-06-05] MEDS: THIAMINE 100 MG TABLET PO SCH (08:42)
[2023-06-05] MEDS: MULTIVITAMINS, THERAPEUTIC TABLET PO SCH (08:42)
[2023-06-05] MEDS: RisperiDONE 1 MG TABLET PO SCH ×2 (08:42→16:12)
[2023-06-05 09:20] VITALS: BP 134/77; PULSE 66; RESP 17; TEMP 97.7; O2SAT 96
[2023-06-05 20:37] VITALS: BP 163/92; PULSE 77; RESP 17; TEMP 97; O2SAT 100
[2023-06-05 20:46] VITALS: BP 153/94
[2023-06-05] MEDS: MIRTAZAPINE 15 MG TABLET PO SCH (21:45)
[2023-06-06 08:40] VITALS: BP 135/95; PULSE 74; RESP 18; TEMP 97.6; O2SAT 97
[2023-06-06] MEDS: FOLIC ACID 1 MG TABLET PO SCH (08:44)
[2023-06-06] MEDS: MULTIVITAMINS, THERAPEUTIC TABLET PO SCH (08:44)
[2023-06-06] MEDS: RisperiDONE 1 MG TABLET PO SCH (08:44)
[2023-06-06] MEDS: THIAMINE 100 MG TABLET PO SCH (08:44)
[2023-06-06] MEDS ORDERED: RISP1TAB98 PO ×2 (10:07→11:24)
[2023-06-06] MEDS ORDERED: MIRT-89 PO (11:24)
== END 2023-06-06 11:05 | disposition home or self-care (01) | DRG 750 ==
LOC: EMS 14:13 → B2S 20:08
PROVIDERS: ADMIT Psychiatry & Neurology Child & Adolescent Psychiatry; ATTEND Psychiatry & Neurology Child & Adolescent Psychiatry
PROC: GZHZZZZ Group Psychotherapy (ICD-10-PCS; principal; 2023-05-29)
DX: F25.1 Schizoaffective disorder, depressive type (principal); R45.851 Suicidal ideations; K70.30 Alcoholic cirrhosis of liver without ascites; F10.10 Alcohol abuse, uncomplicated; F41.9 Anxiety disorder, unspecified; F17.210 Nicotine dependence, cigarettes, uncomplicated; Z20.822 Contact with and (suspected) exposure to COVID-19; F11.20 Opioid dependence, uncomplicated; G47.00 Insomnia, unspecified; Z79.899 Other long term (current) drug therapy; I25.2 Old myocardial infarction; Z59.00 Homelessness unspecified
CPT/HCPCS: 80053; 80307; 81003; 85025; 99285; G0480; Q9967

== ENCOUNTER 2023-06-12 18:24 | Emergency (ER) | payer MEDICAID, OTHER ==
[~2023-06-12] VITALS: Ht 175.3 cm; Wt 109.0 kg
[~2023-06-12 18:24] MED LIST changes: +RISP1TAB98 PO
[2023-06-12 21:43] LABS: BASOPHILS % (AUTO) 1.3 % (0.0-2.0); EOSINOPHILS % (AUTO) 1.5 % (1.0-6.0); HEMATOCRIT 45.2 % (41-53); HEMOGLOBIN 15.5 g/dL (13.5-17.5); LYMPHOCYTES # (AUTO) 2.8 K/uL (1.0-4.8); LYMPHOCYTES % (AUTO) 22.2 % (22.0-44.0); MEAN CORPUSCULAR HEMOGLOBIN 31.7 pg (26.0-34.0); MEAN CORPUSCULAR HGB CONC 34.3 G/dL (31.0-37.0); MEAN CORPUSCULAR VOLUME 93 fL (80-100); MONOCYTES # (AUTO) 1.4 K/uL (0.1-1.0); MONOCYTES % (AUTO) 11.3 % (2.0-9.0); NEUTROPHILS # (AUTO) 8.1 K/uL (1.8-7.7); NEUTROPHILS % (AUTO) 63.7 % (40.0-70.0); PLATELET COUNT (AUTO) 225 K/uL (150-450); RED BLOOD CELL COUNT(AUTO) 4.89 MIL/uL (4.50-5.90); RED CELL DISTRIBUTION WIDTH 13.4 % (11.5-14.5); WHITE BLOOD COUNT (AUTO) 12.7 K/uL (4.5-11.0)
[2023-06-12 21:52] LABS: ANION GAP 9 mmol/L (8-16); CALCIUM, TOTAL 9.7 mg/dL (8.8-10.5); CARBON DIOXIDE 27 mmol/L (22-29); CHLORIDE 98 mmol/L (98-107); CREATININE 2.11 mg/dL (0.60-1.30); GLOMERULAR FILTR. RATE CALC 32 mL/min (>60); GLUCOSE,RANDOM 93 mg/dL (70-110); SODIUM SERUM 134 mmol/L (136-145); UREA NITROGEN, BLOOD 31 mg/dL (7-18)
[2023-06-12 21:57] LABS: ALANINE AMINOTRANSFERASE 27 U/L (12-78); ALBUMIN 3.9 g/dL (3.4-5.0); ALKALINE PHOSPHATASE 98 U/L (46-116); ASPARTATE AMINOTRANSFERASE 32 U/L (15-37); BILIRUBIN,TOTAL 0.9 mg/dL (0.1-1.0)
[2023-06-12 21:59] LABS: TROPONIN I-HIGH SENSITIVITY 21 ng/L (<76)
[2023-06-12 22:00] LABS: ALCOHOL, BLOOD (SERUM) < 3 mg/dL (0-10)
[2023-06-12] MEDS ORDERED: LORazepam 1 MG TABLET PO ONE (23:15)
[2023-06-12 23:47] VITALS: BP 136/98; PULSE 89; RESP 17; TEMP 98.5
== END 2023-06-12 23:50 | disposition home or self-care (01) ==
LOC: EMS 18:27
DX: F41.9 Anxiety disorder, unspecified (principal); F10.20 Alcohol dependence, uncomplicated; F32.A Depression, unspecified; F20.9 Schizophrenia, unspecified; F17.210 Nicotine dependence, cigarettes, uncomplicated; Z98.890 Other specified postprocedural states; Y90.9 Presence of alcohol in blood, level not specified
CPT/HCPCS: 99283; 80053; 84484; 85025; 36415; G0480

== ENCOUNTER 2023-06-16 00:59 | Inpatient (IN) | payer MEDICAID, OTHER ==
[~2023-06-16] VITALS: Ht 175.3 cm; Wt 105.7 kg
[2023-06-16 02:25] LABS: PH,URINE DRUG SCREEN 5.5 (5.0-8.0)
[2023-06-16 02:30] LABS: ALCOHOL, URINE DRUG SCREEN NEGATIVE (NEGATIVE); AMPHET/METH SCREEN,URINE POSITIVE (NEGATIVE); BARBITURATE SCREEN, URINE NEGATIVE (NEGATIVE); BENZODIAZEPINES SCREEN,URINE POSITIVE (NEGATIVE); CANNABINOID SCREEN,URINE NEGATIVE (NEGATIVE); COCAINE SCREEN,URINE NEGATIVE (NEGATIVE); METHADONE SCREEN, URINE POSITIVE (NEGATIVE); OPIATE SCREEN,URINE NEGATIVE (NEGATIVE); PHENCYCLIDINE SCREEN,URINE NEGATIVE (NEGATIVE)
[2023-06-16] MEDS ORDERED: LORazepam 2 MG TABLET PO ONE (03:00)
[2023-06-16] MEDS ORDERED: OLANZapine 5 MG TABLET PO ONE (03:00)
[2023-06-16] MEDS ORDERED: LORazepam 2 MG TABLET PO PRN (10:15)
[2023-06-16] MEDS ORDERED: HALOPERIDOL 5 MG TABLET PO PRN (10:15)
[2023-06-16 10:59] LABS: COVID AG,FIA SOURCE NASAL SWAB
[2023-06-16 11:48] LABS: BASOPHILS % (AUTO) 1.4 % (0.0-2.0); EOSINOPHILS % (AUTO) 4.5 % (1.0-6.0); HEMATOCRIT 39.4 % (41-53); HEMOGLOBIN 13.6 g/dL (13.5-17.5); LYMPHOCYTES # (AUTO) 2.1 K/uL (1.0-4.8); LYMPHOCYTES % (AUTO) 32.8 % (22.0-44.0); MEAN CORPUSCULAR HEMOGLOBIN 31.7 pg (26.0-34.0); MEAN CORPUSCULAR HGB CONC 34.5 G/dL (31.0-37.0); MEAN CORPUSCULAR VOLUME 92 fL (80-100); MONOCYTES % (AUTO) 15.3 % (2.0-9.0); PLATELET COUNT (AUTO) 173 K/uL (150-450); RED BLOOD CELL COUNT(AUTO) 4.28 MIL/uL (4.50-5.90); RED CELL DISTRIBUTION WIDTH 13.4 % (11.5-14.5); WHITE BLOOD COUNT (AUTO) 6.5 K/uL (4.5-11.0)
[2023-06-16 11:58] LABS: SARS-COV2 (COVID) ANTIGEN,FIA Negative (Negative)
[2023-06-16 11:59] LABS: ANION GAP 6 mmol/L (8-16); CALCIUM, TOTAL 8.9 mg/dL (8.8-10.5); CARBON DIOXIDE 26 mmol/L (22-29); CHLORIDE 103 mmol/L (98-107); GLOMERULAR FILTR. RATE CALC 48 mL/min (>60); GLUCOSE,RANDOM 101 mg/dL (70-110); POTASSIUM 3.2 mmol/L (3.5-5.1); SODIUM SERUM 135 mmol/L (136-145); UREA NITROGEN, BLOOD 33 mg/dL (7-18)
[2023-06-16 12:05] LABS: ALANINE AMINOTRANSFERASE 26 U/L (12-78); ALBUMIN 3.3 g/dL (3.4-5.0); ALKALINE PHOSPHATASE 95 U/L (46-116); ASPARTATE AMINOTRANSFERASE 42 U/L (15-37); BILIRUBIN,TOTAL 0.5 mg/dL (0.1-1.0); TOTAL PROTEIN, SERUM 7.5 g/dL (6.4-8.2)
[2023-06-16 12:44] LABS: ALCOHOL, BLOOD (SERUM) < 3 mg/dL (0-10)
[2023-06-16] MEDS ORDERED: POTASSIUM CHLORIDE 20 MEQ ER TABLET PO ONE (14:15)
[2023-06-16 16:45] VITALS: BP 110/78; PULSE 82; RESP 18; TEMP 97.6; O2SAT 98
[2023-06-16] MEDS ORDERED: ChlordiazePOXIDE HCL 25 MG CAPSULE PO PRN (17:00)
[2023-06-16 17:01] VITALS: BP 108/60; PULSE 80; RESP 18; TEMP 97.6; O2SAT 98
[2023-06-16 18:01] VITALS: BP 114/65; PULSE 70; RESP 18; TEMP 97.2; O2SAT 99
[2023-06-16 19:01] VITALS: BP 104/57; PULSE 69; RESP 18; TEMP 98; O2SAT 97
[2023-06-16 20:00] VITALS: BP 112/61; PULSE 70; RESP 18; TEMP 98.2; O2SAT 95
[2023-06-16] MEDS: TraZODone HCL 100 MG TABLET PO SCH (21:00)
[2023-06-16] MEDS: MIRTAZAPINE 15 MG TABLET PO SCH (21:00)
[2023-06-16 23:59] VITALS: BP 105/61; PULSE 92; RESP 19; TEMP 97.5; O2SAT 95
[2023-06-17] VITALS (7 sets, daily range): BP systolic 101–110; BP diastolic 59–67; PULSE 64–92; RESP 18–19; TEMP 97.5–97.8; O2SAT 95–97
[2023-06-17] MEDS ORDERED: ChlordiazePOXIDE HCL 25 MG CAPSULE PO PRN (07:00)
[2023-06-17] MEDS ORDERED: MAG HYDROX/ALUMINUM HYD/SIMETH ES 30 ML SUSPENSION UDCUP PO PRN (07:45)
[2023-06-17] MEDS ORDERED: NICOTINE 14 MG/24 HOUR PATCH TD PRN (07:45)
[2023-06-17] MEDS ORDERED: DOCUSATE SODIUM 100 MG CAPSULE PO PRN (07:45)
[2023-06-17] MEDS ORDERED: MAGNESIUM HYDROXIDE SUSPENSION 30 ML UDCUP PO PRN (07:45)
[2023-06-17] MEDS ORDERED: PETROLATUM,WHITE 28 GM JELLY TP PRN (07:45)
[2023-06-17] MEDS ORDERED: GuaiFENesin/D-METHORPHAN [SUGAR-FREE] 200-20MG/10 ML SYRUP UDCUP PO PRN (07:45)
[2023-06-17] MEDS ORDERED: ALBUTEROL SULFATE HFA 90 MCG/PUFF 8 GM INHALER IH PRN (07:45)
[2023-06-17] MEDS ORDERED: CloNIDine HCL 0.1 MG TABLET PO PRN (07:45)
[2023-06-17] MEDS ORDERED: ONDANSETRON HCL 4 MG TABLET PO PRN (07:45)
[2023-06-17] MEDS ORDERED: IBUPROFEN 400 MG TABLET PO PRN (07:45)
[2023-06-17] MEDS ORDERED: ACETAMINOPHEN 325 MG TABLET PO PRN (07:45)
[2023-06-17] MEDS: ChlordiazePOXIDE HCL 25 MG CAPSULE PO SCH ×4 (09:47→20:22)
[2023-06-17] MEDS: THIAMINE 100 MG TABLET PO SCH (09:47)
[2023-06-17] MEDS: FOLIC ACID 1 MG TABLET PO SCH (09:47)
[2023-06-17] MEDS: NICOTINE 14 MG/24 HOUR PATCH TD SCH (09:47)
[2023-06-17] MEDS: RisperiDONE 1 MG TABLET PO SCH ×2 (09:47→16:10)
[2023-06-17] MEDS ORDERED: PNEUMOCOCCAL VACCINE POLYVALENT 0.5 ML SYRINGE [PPSV23] IM. ONE (13:30)
[2023-06-17] MEDS ORDERED: INFLUENZA VIRUS VACCINE QVS 2023-24 (6MO+)/PF 60 MCG/0.5 ML SYRINGE IM. ONE (13:30)
[2023-06-17] MEDS: MIRTAZAPINE 15 MG TABLET PO SCH (20:22)
[2023-06-17] MEDS: TraZODone HCL 100 MG TABLET PO SCH (20:23)
[2023-06-17] MEDS: ZOLPIDEM TARTRATE 10 MG TABLET PO PRN (22:23)
[2023-06-18 08:16] LABS: HEMOGLOBIN A1C 5.1 % (3.8-5.6)
[2023-06-18] MEDS: FOLIC ACID 1 MG TABLET PO SCH (08:35)
[2023-06-18] MEDS: ChlordiazePOXIDE HCL 25 MG CAPSULE PO SCH ×4 (08:35→21:33)
[2023-06-18] MEDS: RisperiDONE 1 MG TABLET PO SCH ×2 (08:35→17:35)
[2023-06-18] MEDS: THIAMINE 100 MG TABLET PO SCH (08:35)
[2023-06-18] MEDS: NICOTINE 14 MG/24 HOUR PATCH TD SCH (08:35)
[2023-06-18 08:43] VITALS: BP 120/56; PULSE 74; RESP 17; TEMP 98.3; O2SAT 98
[2023-06-18 09:08] LABS: CHOL/HDL RATIO 2.2 (4.2-7.3); POTASSIUM 3.7 mmol/L (3.5-5.1); THYROID STIMULATING HORMONE 1.75 uIU/mL (0.36-3.74)
[2023-06-18] MEDS: LOPERAMIDE HCL 2 MG CAPSULE PO PRN (12:57)
[2023-06-18 14:53] VITALS: RESP 18
[2023-06-18 17:54] VITALS: BP 126/72; PULSE 71; RESP 17; TEMP 98; O2SAT 98
[2023-06-18 21:03] VITALS: BP 126/74; PULSE 72; RESP 16; TEMP 97.4; O2SAT 97
[2023-06-18] MEDS: MIRTAZAPINE 15 MG TABLET PO SCH (21:33)
[2023-06-18] MEDS: TraZODone HCL 100 MG TABLET PO SCH (21:33)
[2023-06-18] MEDS: ZOLPIDEM TARTRATE 10 MG TABLET PO PRN (21:54)
[2023-06-19] MEDS ORDERED: ChlordiazePOXIDE HCL 10 MG CAPSULE PO PRN (07:00)
[2023-06-19 08:20] VITALS: BP 133/86; PULSE 75; RESP 19; TEMP 98; O2SAT 99
[2023-06-19] MEDS: ChlordiazePOXIDE HCL 10 MG CAPSULE PO SCH ×4 (08:25→21:50)
[2023-06-19] MEDS: FOLIC ACID 1 MG TABLET PO SCH (08:25)
[2023-06-19] MEDS: RisperiDONE 1 MG TABLET PO SCH ×2 (08:25→17:14)
[2023-06-19] MEDS: THIAMINE 100 MG TABLET PO SCH (08:25)
[2023-06-19] MEDS: NICOTINE 14 MG/24 HOUR PATCH TD SCH (08:31)
[2023-06-19 18:17] VITALS: BP 125/78; PULSE 78; RESP 18; TEMP 98; O2SAT 98
[2023-06-19] MEDS: ZOLPIDEM TARTRATE 10 MG TABLET PO PRN (21:50)
[2023-06-19] MEDS: MIRTAZAPINE 15 MG TABLET PO SCH (21:50)
[2023-06-19] MEDS: TraZODone HCL 100 MG TABLET PO SCH (21:50)
[2023-06-20 00:53] VITALS: BP 140/90; PULSE 64; RESP 18; TEMP 97.9; O2SAT 98
[2023-06-20] MEDS ORDERED: ChlordiazePOXIDE HCL 10 MG CAPSULE PO PRN (07:00)
[2023-06-20 08:10] VITALS: BP 106/63; PULSE 67; RESP 18; TEMP 97.8; O2SAT 96
[2023-06-20] MEDS: RisperiDONE 1 MG TABLET PO SCH ×2 (08:21→16:10)
[2023-06-20] MEDS: THIAMINE 100 MG TABLET PO SCH (08:21)
[2023-06-20] MEDS: FOLIC ACID 1 MG TABLET PO SCH (08:21)
[2023-06-20] MEDS: NICOTINE 14 MG/24 HOUR PATCH TD SCH (08:26)
[2023-06-20] MEDS: TraZODone HCL 150 MG TABLET PO SCH (20:16)
[2023-06-20] MEDS: MIRTAZAPINE 15 MG TABLET PO SCH (20:16)
[2023-06-20 20:24] VITALS: BP 145/85; PULSE 91; RESP 16; TEMP 98.2; O2SAT 97
[2023-06-20] MEDS: ZOLPIDEM TARTRATE 10 MG TABLET PO PRN (21:33)
[2023-06-21 08:18] VITALS: BP 108/61; PULSE 83; RESP 18; TEMP 98.1; O2SAT 97
[2023-06-21] MEDS: RisperiDONE 1 MG TABLET PO SCH ×2 (08:20→16:25)
[2023-06-21] MEDS: FOLIC ACID 1 MG TABLET PO SCH (08:20)
[2023-06-21] MEDS: THIAMINE 100 MG TABLET PO SCH (08:20)
[2023-06-21] MEDS: NICOTINE 14 MG/24 HOUR PATCH TD SCH (08:20)
[2023-06-21 20:06] VITALS: BP 128/80; PULSE 92; RESP 18; TEMP 98.2; O2SAT 98
[2023-06-21] MEDS: ZOLPIDEM TARTRATE 10 MG TABLET PO PRN (21:23)
[2023-06-21] MEDS: TraZODone HCL 150 MG TABLET PO SCH (21:23)
[2023-06-21] MEDS: MIRTAZAPINE 15 MG TABLET PO SCH (21:23)
[2023-06-22] MEDS: THIAMINE 100 MG TABLET PO SCH (08:15)
[2023-06-22] MEDS: FOLIC ACID 1 MG TABLET PO SCH (08:15)
[2023-06-22] MEDS: RisperiDONE 1 MG TABLET PO SCH ×2 (08:15→16:33)
[2023-06-22 08:24] VITALS: BP 145/90; PULSE 70; RESP 18; TEMP 97.7; O2SAT 98
[2023-06-22] MEDS: NICOTINE 14 MG/24 HOUR PATCH TD SCH (09:00)
[2023-06-22 20:03] VITALS: BP 138/102; PULSE 85; RESP 18; TEMP 97.9; O2SAT 97
[2023-06-22] MEDS: MIRTAZAPINE 15 MG TABLET PO SCH (20:15)
[2023-06-22] MEDS: TraZODone HCL 150 MG TABLET PO SCH (20:15)
[2023-06-22] MEDS: ZOLPIDEM TARTRATE 10 MG TABLET PO PRN (20:32)
[2023-06-22 21:23] VITALS: BP 158/100; PULSE 90; RESP 18
[2023-06-22] MEDS: AmLODIPine BESYLATE 5 MG TABLET PO SCH (21:23)
[2023-06-22 22:07] VITALS: BP 131/88; PULSE 84; RESP 17; O2SAT 97
[2023-06-23 09:06] VITALS: BP 146/80; PULSE 81; RESP 18; TEMP 98.2; O2SAT 96
[2023-06-23] MEDS: FOLIC ACID 1 MG TABLET PO SCH (09:12)
[2023-06-23] MEDS: RisperiDONE 1 MG TABLET PO SCH (09:12)
[2023-06-23] MEDS: NICOTINE 14 MG/24 HOUR PATCH TD SCH (09:12)
[2023-06-23] MEDS: AmLODIPine BESYLATE 5 MG TABLET PO SCH (09:12)
[2023-06-23] MEDS: THIAMINE 100 MG TABLET PO SCH (09:12)
[2023-06-23] MEDS: LOPERAMIDE HCL 2 MG CAPSULE PO PRN (10:49)
[2023-06-23] MEDS ORDERED: LISINOPRIL 5 MG TABLET PO SCH (21:00)
== END 2023-06-23 12:00 | disposition home or self-care (01) | DRG 750 ==
LOC: EMS 00:59 → B2S 12:23
PROVIDERS: ADMIT Psychiatry & Neurology Child & Adolescent Psychiatry; ATTEND Psychiatry & Neurology Child & Adolescent Psychiatry
PROC: GZHZZZZ Group Psychotherapy (ICD-10-PCS; principal; 2023-06-18)
DX: F25.1 Schizoaffective disorder, depressive type (principal); N17.9 Acute kidney failure, unspecified; R45.851 Suicidal ideations; K74.60 Unspecified cirrhosis of liver; F15.10 Other stimulant abuse, uncomplicated; F41.9 Anxiety disorder, unspecified; I10 Essential (primary) hypertension; E66.9 Obesity, unspecified; F11.10 Opioid abuse, uncomplicated; F17.210 Nicotine dependence, cigarettes, uncomplicated; F10.90 Alcohol use, unspecified, uncomplicated; E87.6 Hypokalemia; Z79.899 Other long term (current) drug therapy; Z86.73 Personal history of transient ischemic attack (TIA), and cerebral infarction without residual deficits; Z91.51 Personal history of suicidal behavior; Z68.34 Body mass index [BMI] 34.0-34.9, adult; I25.2 Old myocardial infarction; Z20.822 Contact with and (suspected) exposure to COVID-19
CPT/HCPCS: 80053; 80061; 80307; 83036; 84132; 84443; 85025; 87081; 99285; G0480

== ENCOUNTER 2023-07-07 15:43 | Inpatient (IN) | payer MEDICAID, OTHER ==
[~2023-07-07] VITALS: Ht 175.3 cm; Wt 103.6 kg
[2023-07-07 16:51] LABS: BASOPHILS % (AUTO) 1.2 % (0.0-2.0); EOSINOPHILS % (AUTO) 1.3 % (1.0-6.0); HEMATOCRIT 41.5 % (41-53); HEMOGLOBIN 14.5 g/dL (13.5-17.5); LYMPHOCYTES # (AUTO) 1.9 K/uL (1.0-4.8); LYMPHOCYTES % (AUTO) 22.2 % (22.0-44.0); MEAN CORPUSCULAR HEMOGLOBIN 31.9 pg (26.0-34.0); MEAN CORPUSCULAR HGB CONC 34.9 G/dL (31.0-37.0); MEAN CORPUSCULAR VOLUME 92 fL (80-100); MONOCYTES # (AUTO) 0.8 K/uL (0.1-1.0); NEUTROPHILS # (AUTO) 5.5 K/uL (1.8-7.7); NEUTROPHILS % (AUTO) 65.3 % (40.0-70.0); PLATELET COUNT (AUTO) 220 K/uL (150-450); RED BLOOD CELL COUNT(AUTO) 4.54 MIL/uL (4.50-5.90); RED CELL DISTRIBUTION WIDTH 13.3 % (11.5-14.5); WHITE BLOOD COUNT (AUTO) 8.4 K/uL (4.5-11.0)
[2023-07-07 17:03] LABS: CREATININE 1.56 mg/dL (0.60-1.30); POTASSIUM 3.4 mmol/L (3.5-5.1)
[2023-07-07 17:09] LABS: ALBUMIN 3.5 g/dL (3.4-5.0); BILIRUBIN,TOTAL 0.4 mg/dL (0.1-1.0); TOTAL PROTEIN, SERUM 8.3 g/dL (6.4-8.2)
[2023-07-07 17:47] LABS: ALCOHOL, URINE DRUG SCREEN NEGATIVE (NEGATIVE); AMPHET/METH SCREEN,URINE NEGATIVE (NEGATIVE); BARBITURATE SCREEN, URINE NEGATIVE (NEGATIVE); BENZODIAZEPINES SCREEN,URINE POSITIVE (NEGATIVE); CANNABINOID SCREEN,URINE NEGATIVE (NEGATIVE); COCAINE SCREEN,URINE NEGATIVE (NEGATIVE); METHADONE SCREEN, URINE POSITIVE (NEGATIVE); OPIATE SCREEN,URINE NEGATIVE (NEGATIVE); PHENCYCLIDINE SCREEN,URINE NEGATIVE (NEGATIVE)
[2023-07-07 17:55] LABS: PH,URINE DRUG SCREEN 5.5 (5.0-8.0)
[2023-07-07] MEDS ORDERED: ZOLPIDEM TARTRATE 10 MG TABLET PO PRN (18:15)
[2023-07-07 19:07] LABS: COVID AG,FIA SOURCE NASAL SWAB
[2023-07-07 19:56] LABS: SARS-COV2 (COVID) ANTIGEN,FIA Negative (Negative)
[2023-07-07] MEDS: LORazepam 2 MG TABLET PO PRN (20:55)
[2023-07-07 23:47] VITALS: BP 132/75; PULSE 79; RESP 18; TEMP 98.1; O2SAT 97
[2023-07-08] MEDS ORDERED: PNEUMOCOCCAL VACCINE POLYVALENT 0.5 ML SYRINGE [PPSV23] IM. ONE (02:00)
[2023-07-08] MEDS ORDERED: INFLUENZA VIRUS VACCINE QVS 2023-24 (6MO+)/PF 60 MCG/0.5 ML SYRINGE IM. ONE (02:00)
[2023-07-08 08:24] VITALS: BP 103/67; PULSE 58; RESP 17; TEMP 97.9; O2SAT 96
[2023-07-08] MEDS: LORazepam 2 MG TABLET PO PRN (10:40)
[2023-07-08] MEDS: HALOPERIDOL 5 MG TABLET PO PRN (10:40)
[2023-07-08] MEDS ORDERED: RISPERIDONE SQ SCH (10:45)
[2023-07-08] MEDS ORDERED: PRE FILLED SQ SCH (10:45)
[2023-07-08] MEDS ORDERED: DIAZEPAM 10 MG TABLET PO PRN (11:00)
[2023-07-08] MEDS ORDERED: CYANOCOBALAMIN 1,000 MCG/ML VIAL IM ONE (11:00)
[2023-07-08] MEDS ORDERED: LOPERAMIDE HCL 2 MG CAPSULE PO PRN (11:00)
[2023-07-08] MEDS ORDERED: GuaiFENesin/D-METHORPHAN [SUGAR-FREE] 200-20MG/10 ML SYRUP UDCUP PO PRN (11:00)
[2023-07-08] MEDS ORDERED: HydrOXYzine PAMOATE 50 MG CAPSULE PO PRN (11:00)
[2023-07-08] MEDS: THIAMINE 100 MG TABLET PO SCH ×2 (11:28→16:39)
[2023-07-08] MEDS: FOLIC ACID 1 MG TABLET PO SCH (11:28)
[2023-07-08] MEDS: MULTIVITAMINS WITH MINERALS, THERAPEUTIC TABLET PO SCH (11:28)
[2023-07-08 13:12] VITALS: BP 122/56; PULSE 94; RESP 16; TEMP 98.2; O2SAT 77
[2023-07-08 20:05] VITALS: BP 128/78; PULSE 70; RESP 17; TEMP 97.4
[2023-07-08] MEDS: MIRTAZAPINE 15 MG TABLET PO SCH (20:35)
[2023-07-08 21:12] VITALS: RESP 16
[2023-07-09 01:15] VITALS: BP 113/62; PULSE 62; RESP 18; TEMP 97.4
[2023-07-09 05:15] VITALS: RESP 18
[2023-07-09] MEDS ORDERED: DIAZEPAM 10 MG TABLET PO PRN (07:00)
[2023-07-09 08:24] VITALS: BP 124/72; PULSE 79; RESP 18; TEMP 97.4; O2SAT 95
[2023-07-09] MEDS: MULTIVITAMINS WITH MINERALS, THERAPEUTIC TABLET PO SCH (08:54)
[2023-07-09] MEDS: FOLIC ACID 1 MG TABLET PO SCH (08:54)
[2023-07-09] MEDS: DIAZEPAM 10 MG TABLET PO SCH ×4 (08:54→20:23)
[2023-07-09] MEDS: THIAMINE 100 MG TABLET PO SCH ×2 (08:54→16:46)
[2023-07-09 14:04] VITALS: BP 108/77; PULSE 66; RESP 17; TEMP 97.5
[2023-07-09 16:12] VITALS: BP 117/80
[2023-07-09] MEDS: METHADONE HCL 10 MG TABLET PO SCH (16:13)
[2023-07-09 20:13] VITALS: BP 110/67; PULSE 81; RESP 16; TEMP 97.8; O2SAT 96
[2023-07-09] MEDS: MIRTAZAPINE 15 MG TABLET PO SCH (20:23)
[2023-07-10 08:16] LABS: ANION GAP 7 mmol/L (8-16); CALCIUM, TOTAL 8.7 mg/dL (8.8-10.5); CARBON DIOXIDE 28 mmol/L (22-29); CHLORIDE 107 mmol/L (98-107); CREATININE 1.11 mg/dL (0.60-1.30); GLOMERULAR FILTR. RATE CALC > 60 mL/min (>60); GLUCOSE,RANDOM 87 mg/dL (70-110); POTASSIUM 4.1 mmol/L (3.5-5.1); SODIUM SERUM 142 mmol/L (136-145); UREA NITROGEN, BLOOD 21 mg/dL (7-18)
[2023-07-10 10:06] VITALS: BP 117/77; PULSE 67; RESP 18; TEMP 97.3; O2SAT 95
[2023-07-10] MEDS: METHADONE HCL 10 MG TABLET PO SCH (10:21)
[2023-07-10] MEDS: THIAMINE 100 MG TABLET PO SCH ×2 (10:21→16:18)
[2023-07-10] MEDS: DIAZEPAM 10 MG TABLET PO SCH ×4 (10:21→21:36)
[2023-07-10] MEDS: MULTIVITAMINS WITH MINERALS, THERAPEUTIC TABLET PO SCH (10:21)
[2023-07-10] MEDS: FOLIC ACID 1 MG TABLET PO SCH (10:21)
[2023-07-10 21:36] VITALS: BP 137/87; PULSE 75; RESP 18; TEMP 97.2; O2SAT 97
[2023-07-10] MEDS: MIRTAZAPINE 15 MG TABLET PO SCH (21:36)
[2023-07-10 23:38] VITALS: BP 135/80; PULSE 70; RESP 17; TEMP 97.2; O2SAT 98
[2023-07-11] MEDS ORDERED: DIAZEPAM 5 MG TABLET PO PRN (07:00)
[2023-07-11 08:21] VITALS: BP 117/66; PULSE 58; RESP 18; TEMP 98.9; O2SAT 96
[2023-07-11 09:21] VITALS: PULSE 61
[2023-07-11] MEDS: THIAMINE 100 MG TABLET PO SCH ×2 (09:22→16:50)
[2023-07-11] MEDS: METHADONE HCL 10 MG TABLET PO SCH (09:22)
[2023-07-11] MEDS: DIAZEPAM 5 MG TABLET PO SCH ×4 (09:23→21:43)
[2023-07-11] MEDS: MULTIVITAMINS WITH MINERALS, THERAPEUTIC TABLET PO SCH (09:23)
[2023-07-11] MEDS: FOLIC ACID 1 MG TABLET PO SCH (09:23)
[2023-07-11 12:46] VITALS: BP 136/80; PULSE 73; RESP 17; RESP 18; TEMP 98.9; O2SAT 96
[2023-07-11 20:00] VITALS: BP 147/98; PULSE 76; RESP 18; TEMP 97.8; O2SAT 96
[2023-07-11 20:33] VITALS: BP 147/98; PULSE 76; RESP 18; TEMP 97.8; O2SAT 96
[2023-07-11] MEDS: MIRTAZAPINE 15 MG TABLET PO SCH (21:43)
[2023-07-11 22:27] VITALS: BP 147/98; PULSE 76; RESP 18; TEMP 97.8; O2SAT 95
[2023-07-12] MEDS ORDERED: DIAZEPAM 5 MG TABLET PO PRN (07:00)
[2023-07-12 07:56] VITALS: BP 123/90; PULSE 74; RESP 19; TEMP 98.6; O2SAT 96
[2023-07-12 08:00] VITALS: BP 123/90; PULSE 74; RESP 19; TEMP 98.6; O2SAT 96
[2023-07-12] MEDS: THIAMINE 100 MG TABLET PO SCH ×2 (08:33→16:06)
[2023-07-12] MEDS: METHADONE HCL 10 MG TABLET PO SCH (08:33)
[2023-07-12] MEDS: MULTIVITAMINS WITH MINERALS, THERAPEUTIC TABLET PO SCH (08:33)
[2023-07-12] MEDS: FOLIC ACID 1 MG TABLET PO SCH (08:33)
[2023-07-12 10:45] VITALS: BP 123/90; PULSE 74; RESP 19; TEMP 98.6; O2SAT 96
[2023-07-12 17:06] VITALS: BP 126/95
[2023-07-12] MEDS: MIRTAZAPINE 15 MG TABLET PO SCH (21:00)
[2023-07-12 21:31] VITALS: BP 126/75; PULSE 90; RESP 17; RESP 18; TEMP 98; O2SAT 95
[2023-07-13 08:29] VITALS: BP 127/62; PULSE 75; RESP 17; TEMP 97.6; O2SAT 100
[2023-07-13] MEDS: METHADONE HCL 10 MG TABLET PO SCH (08:48)
[2023-07-13] MEDS: MULTIVITAMINS WITH MINERALS, THERAPEUTIC TABLET PO SCH (08:48)
[2023-07-13] MEDS: THIAMINE 100 MG TABLET PO SCH ×2 (08:48→16:53)
[2023-07-13] MEDS: FOLIC ACID 1 MG TABLET PO SCH (08:49)
[2023-07-13 10:00] VITALS: BP 127/62; PULSE 75; RESP 17; TEMP 97.6; O2SAT 100
[2023-07-13] MEDS: MIRTAZAPINE 15 MG TABLET PO SCH (20:32)
[2023-07-13 20:38] VITALS: BP 106/67; PULSE 86; RESP 18; TEMP 98; O2SAT 97
[2023-07-14 08:54] VITALS: BP 114/65; PULSE 80; RESP 16; TEMP 98.1; O2SAT 95
[2023-07-14] MEDS: METHADONE HCL 10 MG TABLET PO SCH (08:59)
[2023-07-14] MEDS: FOLIC ACID 1 MG TABLET PO SCH (08:59)
[2023-07-14] MEDS: THIAMINE 100 MG TABLET PO SCH ×2 (08:59→17:06)
[2023-07-14] MEDS: MULTIVITAMINS WITH MINERALS, THERAPEUTIC TABLET PO SCH (08:59)
[2023-07-14 20:06] VITALS: BP 124/96; PULSE 64; RESP 18; TEMP 97.8; O2SAT 92
[2023-07-14] MEDS: MIRTAZAPINE 15 MG TABLET PO SCH (20:07)
[2023-07-15] MEDS: MULTIVITAMINS WITH MINERALS, THERAPEUTIC TABLET PO SCH (08:03)
[2023-07-15] MEDS: THIAMINE 100 MG TABLET PO SCH ×2 (08:03→16:20)
[2023-07-15] MEDS: FOLIC ACID 1 MG TABLET PO SCH (08:03)
[2023-07-15] MEDS: METHADONE HCL 10 MG TABLET PO SCH (08:05)
[2023-07-15 08:26] VITALS: BP 123/88; PULSE 64; RESP 18; TEMP 97.9; O2SAT 96
[2023-07-15] MEDS: MIRTAZAPINE 15 MG TABLET PO SCH (20:00)
[2023-07-15 20:10] VITALS: BP 125/86; PULSE 70; RESP 18; TEMP 98; O2SAT 96
[2023-07-16 08:18] VITALS: BP 125/80; PULSE 80; RESP 18; TEMP 98.1; O2SAT 96
[2023-07-16] MEDS: MULTIVITAMINS WITH MINERALS, THERAPEUTIC TABLET PO SCH (08:42)
[2023-07-16] MEDS: FOLIC ACID 1 MG TABLET PO SCH (08:43)
[2023-07-16] MEDS: METHADONE HCL 10 MG TABLET PO SCH (08:43)
[2023-07-16] MEDS: THIAMINE 100 MG TABLET PO SCH ×2 (08:43→16:40)
[2023-07-16 20:10] VITALS: BP 116/80; PULSE 76; RESP 18; TEMP 98.2; O2SAT 96
[2023-07-16] MEDS: MIRTAZAPINE 15 MG TABLET PO SCH (20:39)
[2023-07-17 08:38] VITALS: BP 112/66; PULSE 80; RESP 17; TEMP 98; O2SAT 97
[2023-07-17] MEDS: MULTIVITAMINS WITH MINERALS, THERAPEUTIC TABLET PO SCH (08:53)
[2023-07-17] MEDS: THIAMINE 100 MG TABLET PO SCH ×2 (08:53→16:33)
[2023-07-17] MEDS: FOLIC ACID 1 MG TABLET PO SCH (08:53)
[2023-07-17] MEDS: METHADONE HCL 10 MG TABLET PO SCH (08:53)
[2023-07-17] MEDS: MIRTAZAPINE 15 MG TABLET PO SCH (20:09)
[2023-07-18 08:15] VITALS: RESP 18
[2023-07-18 10:17] VITALS: BP 146/76; PULSE 66; RESP 18; TEMP 97.8
[2023-07-18] MEDS: MULTIVITAMINS WITH MINERALS, THERAPEUTIC TABLET PO SCH (10:17)
[2023-07-18] MEDS: METHADONE HCL 10 MG TABLET PO SCH (10:18)
[2023-07-18 20:15] VITALS: BP 120/73; PULSE 69; RESP 18; TEMP 97.3
[2023-07-18] MEDS: MIRTAZAPINE 15 MG TABLET PO SCH (20:15)
[2023-07-19] MEDS: MULTIVITAMINS WITH MINERALS, THERAPEUTIC TABLET PO SCH (08:07)
[2023-07-19 08:35] VITALS: BP 136/77; PULSE 74; RESP 16; TEMP 97.8
[2023-07-19] MEDS: METHADONE HCL 10 MG TABLET PO SCH (08:36)
[2023-07-19] MEDS: HALOPERIDOL 5 MG TABLET PO PRN (17:25)
[2023-07-19 20:20] VITALS: BP 112/72; PULSE 74; RESP 17; TEMP 97.6
[2023-07-19] MEDS: MIRTAZAPINE 30 MG TABLET PO SCH (20:39)
[2023-07-20] MEDS: MULTIVITAMINS WITH MINERALS, THERAPEUTIC TABLET PO SCH (08:16)
[2023-07-20] MEDS: METHADONE HCL 10 MG TABLET PO SCH (08:56)
[2023-07-20 09:08] VITALS: BP 113/73; PULSE 68; RESP 18; TEMP 97.9; O2SAT 96
[2023-07-20] MEDS: HALOPERIDOL 5 MG TABLET PO PRN (12:30)
[2023-07-20 20:53] VITALS: RESP 18
[2023-07-20] MEDS: MIRTAZAPINE 30 MG TABLET PO SCH (21:06)
[2023-07-21 08:36] VITALS: BP 114/82; PULSE 64; RESP 18; TEMP 97.1; O2SAT 96
[2023-07-21] MEDS ORDERED: METHADONE HCL 10 MG TABLET PO SCH (09:00)
[2023-07-21] MEDS: MULTIVITAMINS WITH MINERALS, THERAPEUTIC TABLET PO SCH (09:23)
[2023-07-21] MEDS ORDERED: MIRT-149 PO (13:03)
[2023-07-24] MEDS ORDERED: METHADONE HCL 10 MG TABLET PO SCH (09:00)
== END 2023-07-21 14:32 | disposition home or self-care (01) | DRG 750 ==
LOC: EMS 15:45 → B2S 18:53
PROVIDERS: ADMIT Psychiatry & Neurology Child & Adolescent Psychiatry; ATTEND Psychiatry & Neurology Child & Adolescent Psychiatry
DX: F25.1 Schizoaffective disorder, depressive type (principal); N17.9 Acute kidney failure, unspecified; I10 Essential (primary) hypertension; B18.2 Chronic viral hepatitis C; Z20.822 Contact with and (suspected) exposure to COVID-19; F11.20 Opioid dependence, uncomplicated; E87.6 Hypokalemia; F41.9 Anxiety disorder, unspecified; F32.A Depression, unspecified; F17.210 Nicotine dependence, cigarettes, uncomplicated; F10.20 Alcohol dependence, uncomplicated; G47.00 Insomnia, unspecified; R45.851 Suicidal ideations; Z79.899 Other long term (current) drug therapy; Z86.73 Personal history of transient ischemic attack (TIA), and cerebral infarction without residual deficits
CPT/HCPCS: 80048; 80053; 80307; 85025; 87081; 99285; G0480; J3420; Q9967

== ENCOUNTER 2023-08-19 10:16 | Inpatient (IN) | payer MEDICAID, OTHER ==
[~2023-08-19] VITALS: Ht 175.3 cm; Wt 115.7 kg
[~2023-08-19 10:16] MED LIST changes: -FOLI-130 PO; +MIRT-149 PO; -MIRT-89 PO; -RISP1TAB98 PO; -THIA100T80 PO
[2023-08-19 11:06] LABS: BASOPHILS % (AUTO) 1.1 % (0.0-2.0); EOSINOPHILS % (AUTO) 4.4 % (1.0-6.0); HEMOGLOBIN 13.1 g/dL (13.5-17.5); LYMPHOCYTES # (AUTO) 1.8 K/uL (1.0-4.8); LYMPHOCYTES % (AUTO) 22.3 % (22.0-44.0); MEAN CORPUSCULAR HEMOGLOBIN 31.2 pg (26.0-34.0); MEAN CORPUSCULAR HGB CONC 33.7 G/dL (31.0-37.0); MEAN CORPUSCULAR VOLUME 93 fL (80-100); MONOCYTES # (AUTO) 0.8 K/uL (0.1-1.0); MONOCYTES % (AUTO) 10.1 % (2.0-9.0); NEUTROPHILS % (AUTO) 62.1 % (40.0-70.0); RED BLOOD CELL COUNT(AUTO) 4.22 MIL/uL (4.50-5.90)
[2023-08-19 11:28] LABS: ANION GAP 6 mmol/L (8-16); CALCIUM, TOTAL 9.2 mg/dL (8.8-10.5); CARBON DIOXIDE 27 mmol/L (22-29); CHLORIDE 105 mmol/L (98-107); CREATININE 1.15 mg/dL (0.60-1.30); GLOMERULAR FILTR. RATE CALC > 60 mL/min (>60); GLUCOSE,RANDOM 107 mg/dL (70-110); POTASSIUM 3.5 mmol/L (3.5-5.1); SODIUM SERUM 138 mmol/L (136-145); UREA NITROGEN, BLOOD 20 mg/dL (7-18)
[2023-08-19 11:31] LABS: PLATELET COUNT (AUTO) 158 K/uL (150-450)
[2023-08-19 11:40] LABS: ALANINE AMINOTRANSFERASE 34 U/L (12-78); ALBUMIN 3.4 g/dL (3.4-5.0); ALKALINE PHOSPHATASE 77 U/L (46-116); ASPARTATE AMINOTRANSFERASE 45 U/L (15-37); BILIRUBIN,TOTAL 0.6 mg/dL (0.1-1.0); TOTAL PROTEIN, SERUM 7.7 g/dL (6.4-8.2)
[2023-08-19 11:41] LABS: ALCOHOL, BLOOD (SERUM) < 3 mg/dL (0-10)
[2023-08-19 13:09] LABS: COVID AG,FIA SOURCE NASAL SWAB
[2023-08-19 13:15] LABS: SARS-COV2 (COVID) ANTIGEN,FIA Negative (Negative)
[2023-08-19] MEDS ORDERED: ZOLPIDEM TARTRATE 10 MG TABLET PO PRN (14:30)
[2023-08-19 20:30] VITALS: BP 156/94; PULSE 68; RESP 18; TEMP 97; O2SAT 98
[2023-08-19 21:30] VITALS: BP 138/88; PULSE 66; RESP 18; TEMP 97; O2SAT 96
[2023-08-19 22:30] VITALS: BP 140/86; PULSE 68; RESP 18; TEMP 97; O2SAT 98
[2023-08-19 23:30] VITALS: BP 137/59; PULSE 59; RESP 16; TEMP 97.5; O2SAT 96
[2023-08-19 23:40] VITALS: BP 137/59; PULSE 59; RESP 18; TEMP 97.5
[2023-08-20] VITALS (8 sets, daily range): BP systolic 96–133; BP diastolic 47–73; PULSE 54–74; RESP 16–20; TEMP 97.1–98.7; O2SAT 94–98
[2023-08-20] MEDS ORDERED: LOPERAMIDE HCL 2 MG CAPSULE PO PRN (06:45)
[2023-08-20] MEDS ORDERED: ACETAMINOPHEN 325 MG TABLET PO PRN (06:45)
[2023-08-20] MEDS ORDERED: GuaiFENesin/D-METHORPHAN [SUGAR-FREE] 200-20MG/10 ML SYRUP UDCUP PO PRN (06:45)
[2023-08-20] MEDS ORDERED: IBUPROFEN 400 MG TABLET PO PRN (06:45)
[2023-08-20] MEDS ORDERED: ONDANSETRON HCL 4 MG TABLET PO PRN (06:45)
[2023-08-20] MEDS ORDERED: MAG HYDROX/ALUMINUM HYD/SIMETH ES 30 ML SUSPENSION UDCUP PO PRN (06:45)
[2023-08-20] MEDS ORDERED: MAGNESIUM HYDROXIDE SUSPENSION 30 ML UDCUP PO PRN (06:45)
[2023-08-20] MEDS ORDERED: PETROLATUM,WHITE 28 GM JELLY TP PRN (06:45)
[2023-08-20] MEDS ORDERED: NICOTINE 14 MG/24 HOUR PATCH TD PRN (06:45)
[2023-08-20] MEDS ORDERED: DOCUSATE SODIUM 100 MG CAPSULE PO PRN (06:45)
[2023-08-20] MEDS ORDERED: CloNIDine HCL 0.1 MG TABLET PO PRN (06:45)
[2023-08-20] MEDS ORDERED: ALBUTEROL SULFATE HFA 90 MCG/PUFF 8 GM INHALER IH PRN (06:45)
[2023-08-20] MEDS: NICOTINE 14 MG/24 HOUR PATCH TD SCH (09:56)
[2023-08-20] MEDS: INFLUENZA VIRUS VACCINE QVS 2023-24 (6MO+)/PF 60 MCG/0.5 ML SYRINGE IM. ONE (09:58)
[2023-08-20] MEDS ORDERED: RISP90SU IM (11:11)
[2023-08-20] MEDS: LORazepam 2 MG TABLET PO PRN (16:46)
[2023-08-20] MEDS ORDERED: DICYCLOMINE HCL 20 MG TABLET PO PRN (17:15)
[2023-08-20] MEDS: MIRTAZAPINE 30 MG TABLET PO SCH (20:27)
[2023-08-20] MEDS: LISINOPRIL 10 MG TABLET PO SCH (20:27)
[2023-08-21 00:35] VITALS: BP 130/62; PULSE 70; RESP 18; TEMP 97.2; O2SAT 97
[2023-08-21 04:34] VITALS: BP 123/60; PULSE 72; RESP 18; TEMP 97.4; O2SAT 96
[2023-08-21] MEDS: FAMOTIDINE 20 MG TABLET PO SCH (06:24)
[2023-08-21 08:41] LABS: CHOL/HDL RATIO 2.1 (4.2-7.3); THYROID STIMULATING HORMONE 4.07 uIU/mL (0.36-3.74)
[2023-08-21] MEDS: PROPRANOLOL HCL 20 MG TABLET PO SCH (09:34)
[2023-08-21] MEDS: AmLODIPine BESYLATE 5 MG TABLET PO SCH (09:34)
[2023-08-21 17:15] VITALS: BP 130/77; PULSE 84; RESP 18; TEMP 97.7
[2023-08-21 20:08] VITALS: BP 124/62; PULSE 55; RESP 19; TEMP 98.3; O2SAT 97
[2023-08-22 08:21] VITALS: BP 131/46; PULSE 70; RESP 16; TEMP 98; O2SAT 100
[2023-08-22] MEDS: METHADONE HCL 10 MG/5 ML SOLUTION ORAL.SYG PO SCH (08:53)
[2023-08-22 20:36] VITALS: BP 119/74; PULSE 60; RESP 20; TEMP 98; O2SAT 98
[2023-08-23 08:19] VITALS: BP 141/92; PULSE 65; RESP 17; TEMP 98.2; O2SAT 96
[2023-08-23 20:28] VITALS: BP 138/69; PULSE 64; RESP 19; TEMP 97.4; O2SAT 95
[2023-08-24 08:10] VITALS: BP 100/66; PULSE 73; RESP 16; TEMP 97.5; O2SAT 95
[2023-08-24 09:00] VITALS: BP 108/57; PULSE 66; RESP 16
[2023-08-24 21:10] VITALS: BP 109/66; PULSE 68; RESP 18; TEMP 98.6; O2SAT 95
[2023-08-25 08:20] VITALS: BP 114/62; PULSE 66; RESP 17; TEMP 98; O2SAT 95
[2023-08-25 20:06] VITALS: BP 109/67; PULSE 62; RESP 18; TEMP 97.6; O2SAT 96
[2023-08-26] MEDS: HALOPERIDOL 5 MG TABLET PO PRN (08:16)
[2023-08-26 08:27] VITALS: BP 118/80; PULSE 67; RESP 19; TEMP 97.6; O2SAT 96
[2023-08-26] MEDS ORDERED: MIRT-149 PO (10:31)
[2023-08-26] MEDS ORDERED: PROP20TA96 PO (10:31)
== END 2023-08-26 14:45 | disposition home or self-care (01) | DRG 750 ==
LOC: EMS 10:16 → B2S 17:55
PROVIDERS: ADMIT Psychiatry & Neurology Psychiatry; ATTEND Psychiatry & Neurology Child & Adolescent Psychiatry
PROC: GZHZZZZ Group Psychotherapy (ICD-10-PCS; principal; 2023-08-20)
DX: F25.1 Schizoaffective disorder, depressive type (principal); R45.851 Suicidal ideations; K70.30 Alcoholic cirrhosis of liver without ascites; F41.9 Anxiety disorder, unspecified; R94.6 Abnormal results of thyroid function studies; F11.90 Opioid use, unspecified, uncomplicated; Z20.822 Contact with and (suspected) exposure to COVID-19; F10.90 Alcohol use, unspecified, uncomplicated; D64.9 Anemia, unspecified; F17.210 Nicotine dependence, cigarettes, uncomplicated; Z86.73 Personal history of transient ischemic attack (TIA), and cerebral infarction without residual deficits; I25.2 Old myocardial infarction; Z79.899 Other long term (current) drug therapy; Z91.51 Personal history of suicidal behavior
CPT/HCPCS: 80053; 80061; 83036; 84443; 85025; 87081; 99285; G0480

== ENCOUNTER 2023-09-05 08:36 | Emergency (ER) | payer MEDICAID, OTHER ==
[~2023-09-05] VITALS: Ht 175.3 cm; Wt 115.0 kg
[~2023-09-05 08:36] MED LIST changes: +PROP20TA96 PO
[2023-09-05 08:40] VITALS: TEMP 98.8
[2023-09-05] MEDS ORDERED: METH10SO PO (08:44)
[2023-09-05] MEDS ORDERED: AMOX1TAB16 PO (09:24)
[2023-09-05] MEDS ORDERED: IBUP-1554 PO (09:24)
[2023-09-05] MEDS: LIDOCAINE/PF 1% 2 ML VIAL IM ONE (09:34)
[2023-09-05] MEDS: CefTRIAXone SODIUM 1 GM/VIAL IM ONE (09:34)
[2023-09-05 09:42] VITALS: BP 135/82; PULSE 68; RESP 16
== END 2023-09-05 09:47 | disposition home or self-care (01) ==
LOC: EMS 08:37
DX: K04.7 Periapical abscess without sinus (principal); F10.20 Alcohol dependence, uncomplicated; F41.9 Anxiety disorder, unspecified; F32.A Depression, unspecified; F20.9 Schizophrenia, unspecified; F17.210 Nicotine dependence, cigarettes, uncomplicated; F11.90 Opioid use, unspecified, uncomplicated; Z98.890 Other specified postprocedural states; Y90.9 Presence of alcohol in blood, level not specified
CPT/HCPCS: 99283; 96372; J0696; J3490

== ENCOUNTER 2024-05-27 17:35 | Emergency (ER) | payer MEDICAID, OTHER ==
[~2024-05-27] VITALS: Ht 172.7 cm; Wt 90.9 kg
[~2024-05-27 17:35] MED LIST changes: -MIRT-149 PO; -PROP20TA96 PO; +QUET100T PO; +QUET100T34 PO
[2024-05-27] MEDS ORDERED: LOPE-202 PO (17:49)
[2024-05-27 17:55] LABS: COVID AG,FIA SOURCE NASAL SWAB
[2024-05-27 18:30] LABS: INFLUENZA TYPE A NEGATIVE FOR TYPE A (NEGATIVE); INFLUENZA TYPE B NEGATIVE FOR TYPE B (NEGATIVE); SARS-COV2 (COVID) ANTIGEN,FIA Negative (Negative)
[2024-05-28] MEDS: SODIUM CHLORIDE 0.9% 1,000 ML IV ONE (01:04)
[2024-05-28] MEDS: METOCLOPRAMIDE HCL 5 MG/ML 2 ML VIAL IVP ONE (01:05)
[2024-05-28 02:31] LABS: BASOPHILS % (AUTO) 0.8 % (0.0-2.0); EOSINOPHILS % (AUTO) 3.6 % (1.0-6.0); HEMATOCRIT 35.7 % (41-53); HEMOGLOBIN 12.3 g/dL (13.5-17.5); LYMPHOCYTES # (AUTO) 2.1 K/uL (1.0-4.8); MEAN CORPUSCULAR HEMOGLOBIN 31.3 pg (26.0-34.0); MEAN CORPUSCULAR HGB CONC 34.5 G/dL (31.0-37.0); MEAN CORPUSCULAR VOLUME 91 fL (80-100); MONOCYTES # (AUTO) 1.3 K/uL (0.1-1.0); MONOCYTES % (AUTO) 15.3 % (2.0-9.0); NEUTROPHILS # (AUTO) 4.9 K/uL (1.8-7.7); NEUTROPHILS % (AUTO) 56.3 % (40.0-70.0); PLATELET COUNT (AUTO) 194 K/uL (150-450); RED BLOOD CELL COUNT(AUTO) 3.94 MIL/uL (4.50-5.90); RED CELL DISTRIBUTION WIDTH 14.3 % (11.5-14.5); WHITE BLOOD COUNT (AUTO) 8.8 K/uL (4.5-11.0)
[2024-05-28 02:41] LABS: ANION GAP 9 mmol/L (8-16); CALCIUM, TOTAL 8.2 mg/dL (8.8-10.5); CARBON DIOXIDE 23 mmol/L (22-29); CHLORIDE 105 mmol/L (98-107); CREATININE 1.01 mg/dL (0.60-1.30); GLOMERULAR FILTR. RATE CALC > 60 mL/min (>60); GLUCOSE,RANDOM 134 mg/dL (70-110); LIPASE 18 U/L (16-77); SODIUM SERUM 137 mmol/L (136-145); UREA NITROGEN, BLOOD 17 mg/dL (7-18)
[2024-05-28 03:17] LABS: POTASSIUM 2.9 mmol/L (3.5-5.1)
[2024-05-28 03:22] VITALS: BP 141/81; PULSE 89; RESP 18; TEMP 97.3; O2SAT 99
== END 2024-05-28 03:32 | disposition home or self-care (01) ==
LOC: EMS 17:35
DX: K52.9 Noninfective gastroenteritis and colitis, unspecified (principal); F20.9 Schizophrenia, unspecified; F32.A Depression, unspecified; K70.30 Alcoholic cirrhosis of liver without ascites; F17.210 Nicotine dependence, cigarettes, uncomplicated; F15.10 Other stimulant abuse, uncomplicated; Z86.73 Personal history of transient ischemic attack (TIA), and cerebral infarction without residual deficits; Z20.822 Contact with and (suspected) exposure to COVID-19
CPT/HCPCS: 99284; 87426; 80048; 83690; 85025; 87804; 74018; J2765; 36415-L1; 36415-TC

== ENCOUNTER 2024-06-16 04:30 | Inpatient (IN) | payer MEDICAID, OTHER ==
[~2024-06-16] VITALS: Ht 172.7 cm; Wt 95.2 kg
[~2024-06-16 04:30] MED LIST changes: +LOPE-202 PO
[2024-06-16 06:12] LABS: COVID AG,FIA SOURCE NASAL SWAB
[2024-06-16 06:31] LABS: SARS-COV2 (COVID) ANTIGEN,FIA Negative (Negative)
[2024-06-16 06:50] LABS: EOSINOPHILS % (AUTO) 0.4 % (1.0-6.0); HEMATOCRIT 39.6 % (41-53); LYMPHOCYTES % (AUTO) 12.3 % (22.0-44.0); MEAN CORPUSCULAR HEMOGLOBIN 31.7 pg (26.0-34.0); MEAN CORPUSCULAR HGB CONC 35.2 G/dL (31.0-37.0); MEAN CORPUSCULAR VOLUME 90 fL (80-100); MONOCYTES # (AUTO) 0.6 K/uL (0.1-1.0); MONOCYTES % (AUTO) 7.4 % (2.0-9.0); NEUTROPHILS # (AUTO) 6.4 K/uL (1.8-7.7); NEUTROPHILS % (AUTO) 78.9 % (40.0-70.0); PLATELET COUNT (AUTO) 222 K/uL (150-450); RED CELL DISTRIBUTION WIDTH 13.6 % (11.5-14.5); WHITE BLOOD COUNT (AUTO) 8.2 K/uL (4.5-11.0)
[2024-06-16 07:02] LABS: ANION GAP 7 mmol/L (8-16); CALCIUM, TOTAL 8.9 mg/dL (8.8-10.5); CARBON DIOXIDE 30 mmol/L (22-29); CHLORIDE 100 mmol/L (98-107); CREATININE 1.06 mg/dL (0.60-1.30); GLOMERULAR FILTR. RATE CALC > 60 mL/min (>60); GLUCOSE,RANDOM 102 mg/dL (70-110); LIPASE 13 U/L (16-77); POTASSIUM 3.7 mmol/L (3.5-5.1); SODIUM SERUM 137 mmol/L (136-145); UREA NITROGEN, BLOOD 11 mg/dL (7-18)
[2024-06-16 07:04] LABS: ALCOHOL, BLOOD (SERUM) < 3 mg/dL (0-10)
[2024-06-16] MEDS: LORazepam 2 MG/ML VIAL IVP ONE (07:22)
[2024-06-16] MEDS: MAGNESIUM SULFATE 2 GM, MVI, ADULT NO.1 WITH VIT K 10 ML, THIAMINE 100 MG, FOLIC ACID 1... IV ONE (07:22)
[2024-06-16 07:27] LABS: LACTIC ACID 1.3 mmol/L (0.4-2.0)
[2024-06-16 07:35] LABS: TROPONIN I-HIGH SENSITIVITY 9 ng/L (<76)
[2024-06-16 10:07] LABS: ALCOHOL, URINE DRUG SCREEN NEGATIVE (NEGATIVE); AMPHET/METH SCREEN,URINE POSITIVE (NEGATIVE); BARBITURATE SCREEN, URINE NEGATIVE (NEGATIVE); BENZODIAZEPINES SCREEN,URINE NEGATIVE (NEGATIVE); CANNABINOID SCREEN,URINE NEGATIVE (NEGATIVE); COCAINE SCREEN,URINE NEGATIVE (NEGATIVE); METHADONE SCREEN, URINE POSITIVE (NEGATIVE); OPIATE SCREEN,URINE NEGATIVE (NEGATIVE); PHENCYCLIDINE SCREEN,URINE NEGATIVE (NEGATIVE)
[2024-06-16 15:44] LABS: APPEARANCE,URINE CLEAR (CLEAR); BILIRUBIN,URINE NEGATIVE (NEGATIVE); COLOR,URINE COLORLESS (YELLOW); GLUCOSE, URINE (UA) NEGATIVE (NEGATIVE); KETONES,URINE NEGATIVE (NEGATIVE); LEUKOCYTE ESTERASE ,URINE NEGATIVE (NEGATIVE); NITRATE,URINE NEGATIVE (NEGATIVE); OCCULT BLOOD,URINE NEGATIVE (NEGATIVE); PROTEIN,URINE NEGATIVE (NEGATIVE); SPECIFIC GRAVITIY, URINE 1.008 (1.003-1.030); UROBILINOGEN,URINE <=1.0 mg/dL (<=1.0)
[2024-06-16 19:21] VITALS: O2SAT 95
[2024-06-16] MEDS: ZOLPIDEM TARTRATE 10 MG TABLET PO PRN (19:55)
[2024-06-17] MEDS ORDERED: IBUPROFEN 400 MG TABLET PO PRN (00:45)
[2024-06-17] MEDS ORDERED: ALBUTEROL SULFATE HFA 90 MCG/PUFF 8 GM INHALER IH PRN (00:45)
[2024-06-17] MEDS ORDERED: GuaiFENesin/D-METHORPHAN [SUGAR-FREE] 200-20MG/10 ML SYRUP UDCUP PO PRN (00:45)
[2024-06-17] MEDS ORDERED: DOCUSATE SODIUM 100 MG CAPSULE PO PRN (00:45)
[2024-06-17] MEDS ORDERED: ACETAMINOPHEN 325 MG TABLET PO PRN (00:45)
[2024-06-17] MEDS ORDERED: MAGNESIUM HYDROXIDE SUSPENSION 30 ML UDCUP PO PRN (00:45)
[2024-06-17] MEDS ORDERED: ONDANSETRON 4 MG TABLET PO PRN ×2 (00:45)
[2024-06-17] MEDS ORDERED: PETROLATUM,WHITE 28 GM JELLY TP PRN (00:45)
[2024-06-17] MEDS ORDERED: MAG HYDROX/ALUMINUM HYD/SIMETH ES 30 ML SUSPENSION UDCUP PO PRN (00:45)
[2024-06-17] MEDS ORDERED: LOPERAMIDE HCL 2 MG CAPSULE PO PRN (00:45)
[2024-06-17] MEDS ORDERED: NICOTINE 14 MG/24 HOUR PATCH TD PRN (00:45)
[2024-06-17 01:29] VITALS: BP 160/103; PULSE 66; RESP 18; TEMP 97.9; O2SAT 97
[2024-06-17] MEDS ORDERED: INFLUENZA VIRUS VACCINE TVS (6MO+) 2024-25/PF 45 MCG/0.5 ML SYRINGE IM. ONE (06:00)
[2024-06-17] MEDS ORDERED: PNEUMOCOCCAL VACCINE POLYVALENT 0.5 ML SYRINGE [PPSV23] IM. ONE (08:15)
[2024-06-17 09:21] VITALS: RESP 18; TEMP 97.8
[2024-06-17 12:30] VITALS: BP 138/74; PULSE 72; RESP 20; TEMP 98.9; O2SAT 95
[2024-06-17] MEDS: HALOPERIDOL 5 MG TABLET PO PRN (12:36)
[2024-06-17] MEDS: LORazepam 2 MG TABLET PO PRN (12:36)
[2024-06-17] MEDS: QUEtiapine FUMARATE 200 MG TABLET PO SCH (20:30)
[2024-06-17 20:50] VITALS: BP 136/89; PULSE 78; RESP 20; TEMP 98.1; O2SAT 95
[2024-06-18 08:53] VITALS: BP 141/98; PULSE 71; RESP 18; TEMP 98.1; O2SAT 95
[2024-06-18 21:00] VITALS: BP 170/95; PULSE 63; RESP 18; TEMP 97.8; O2SAT 96
[2024-06-18] MEDS: CloNIDine HCL 0.1 MG TABLET PO PRN (21:15)
[2024-06-18 23:10] VITALS: BP 123/83; PULSE 69; RESP 18; O2SAT 96
[2024-06-19 09:24] VITALS: BP 155/85; PULSE 64; RESP 18; TEMP 97.7; O2SAT 95
[2024-06-19 21:41] VITALS: BP 159/94; PULSE 57; RESP 18; TEMP 98; O2SAT 95
[2024-06-20 15:00] VITALS: BP 157/93; PULSE 63; RESP 16; TEMP 98.2; O2SAT 100
[2024-06-20 20:58] VITALS: RESP 18
[2024-06-21 07:47] LABS: EOSINOPHILS % (AUTO) 1.3 % (1.0-6.0); HEMATOCRIT 47.7 % (41-53); HEMOGLOBIN 16.2 g/dL (13.5-17.5); LYMPHOCYTES # (AUTO) 2.8 K/uL (1.0-4.8); MEAN CORPUSCULAR HEMOGLOBIN 30.9 pg (26.0-34.0); MEAN CORPUSCULAR VOLUME 91 fL (80-100); MONOCYTES % (AUTO) 10.4 % (2.0-9.0); NEUTROPHILS # (AUTO) 5.2 K/uL (1.8-7.7); NEUTROPHILS % (AUTO) 56.3 % (40.0-70.0); PLATELET COUNT (AUTO) 217 K/uL (150-450); RED BLOOD CELL COUNT(AUTO) 5.25 MIL/uL (4.50-5.90); RED CELL DISTRIBUTION WIDTH 14.1 % (11.5-14.5); WHITE BLOOD COUNT (AUTO) 9.2 K/uL (4.5-11.0)
[2024-06-21 08:08] LABS: HEMOGLOBIN A1C 5.1 % (3.8-5.6)
[2024-06-21 08:10] LABS: ALANINE AMINOTRANSFERASE 16 U/L (12-78); ALBUMIN 3.5 g/dL (3.4-5.0); ALKALINE PHOSPHATASE 84 U/L (46-116); ANION GAP 8 mmol/L (8-16); ASPARTATE AMINOTRANSFERASE 23 U/L (15-37); BILIRUBIN,TOTAL 0.8 mg/dL (0.1-1.0); CALCIUM, TOTAL 9.2 mg/dL (8.8-10.5); CARBON DIOXIDE 27 mmol/L (22-29); CHLORIDE 104 mmol/L (98-107); CHOL/HDL RATIO 2.3 (4.2-7.3); CHOLESTEROL 141 mg/dL (131-200); GLOMERULAR FILTR. RATE CALC > 60 mL/min (>60); GLUCOSE,RANDOM 84 mg/dL (70-110); HDL CHOLESTEROL 62 mg/dL (40-60); LDL CHOL (CALC.) 60 mg/dL (0-130); POTASSIUM 3.8 mmol/L (3.5-5.1); SODIUM SERUM 139 mmol/L (136-145); THYROID STIMULATING HORMONE 1.94 uIU/mL (0.36-3.74); TOTAL PROTEIN, SERUM 8.3 g/dL (6.4-8.2); TRIGLYCERIDES 96 mg/dL (15-150); UREA NITROGEN, BLOOD 18 mg/dL (7-18)
[2024-06-21 09:16] VITALS: BP 142/90; PULSE 71; RESP 19; TEMP 97.1; O2SAT 97
[2024-06-21] MEDS: QUEtiapine FUMARATE 300 MG TABLET PO SCH (20:12)
[2024-06-21 20:30] VITALS: BP 152/98; PULSE 70; RESP 16; TEMP 97.8; O2SAT 96
[2024-06-22 08:00] VITALS: BP 149/80; PULSE 73; RESP 20; TEMP 97.1; O2SAT 96
[2024-06-22 20:19] VITALS: BP 151/94; PULSE 71; RESP 16; TEMP 98; O2SAT 97
[2024-06-23 10:57] VITALS: BP 151/90; PULSE 74; RESP 17; TEMP 97.9; O2SAT 95
[2024-06-23 21:11] VITALS: RESP 18
[2024-06-24] MEDS ORDERED: QUET300T19 PO (06:22)
[2024-06-24 10:35] VITALS: BP 138/90; PULSE 83; RESP 18; TEMP 98.4; O2SAT 98
== END 2024-06-24 17:35 | disposition home or self-care (01) | DRG 750 ==
LOC: EMS 04:31 → 3EC 22:57
PROVIDERS: ADMIT Psychiatry & Neurology Psychiatry; ATTEND Psychiatry & Neurology Psychiatry
PROC: GZHZZZZ Group Psychotherapy (ICD-10-PCS; principal; 2024-06-17)
PROC: GZ52ZZZ Individual Psychotherapy, Cognitive (ICD-10-PCS; 2024-06-17)
DX: F25.1 Schizoaffective disorder, depressive type (principal); K74.60 Unspecified cirrhosis of liver; F10.20 Alcohol dependence, uncomplicated; F10.239 Alcohol dependence with withdrawal, unspecified; F11.20 Opioid dependence, uncomplicated; F15.20 Other stimulant dependence, uncomplicated; Z20.822 Contact with and (suspected) exposure to COVID-19; F17.210 Nicotine dependence, cigarettes, uncomplicated; Z59.00 Homelessness unspecified; Z86.73 Personal history of transient ischemic attack (TIA), and cerebral infarction without residual deficits
CPT/HCPCS: 80048; 80053; 80061; 80307; 81003; 83036; 83605; 83690; 84443; 84484; 85025; 87081; 99285; G0480; J2060; J3411; J3475; J3490; J7030

== ENCOUNTER → 2024-09-15 | Emergency (ER) | payer MEDICAID ==
[~2024-09-15] VITALS: Ht 175.3 cm; Wt 95.5 kg
[~2024-09-15] MED LIST changes: -LOPE-202 PO; +LOPE-232 PO; +METH5SOL20 PO; -QUET100T PO; -QUET100T34 PO; +QUET300T19 PO
[2024-09-15] MEDS: LOPERAMIDE HCL 2 MG CAPSULE PO ONE (09:51)
[2024-09-15] MEDS: SODIUM CHLORIDE 0.9% 1,000 ML IV ONE (09:52)
[2024-09-15 10:04] VITALS: BP 117/85; PULSE 75; RESP 17; TEMP 97.7; O2SAT 98
[2024-09-15 10:54] LABS: BASOPHILS % (AUTO) 0.5 % (0.0-2.0); EOSINOPHILS % (AUTO) 1.7 % (1.0-6.0); HEMATOCRIT 41.5 % (41-53); HEMOGLOBIN 13.9 g/dL (13.5-17.5); LYMPHOCYTES # (AUTO) 1.6 K/uL (1.0-4.8); LYMPHOCYTES % (AUTO) 20.3 % (22.0-44.0); MEAN CORPUSCULAR HEMOGLOBIN 30.4 pg (26.0-34.0); MEAN CORPUSCULAR HGB CONC 33.5 G/dL (31.0-37.0); MEAN CORPUSCULAR VOLUME 91 fL (80-100); MONOCYTES % (AUTO) 12.8 % (2.0-9.0); NEUTROPHILS # (AUTO) 5.1 K/uL (1.8-7.7); NEUTROPHILS % (AUTO) 64.7 % (40.0-70.0); PLATELET COUNT (AUTO) 146 K/uL (150-450); RED BLOOD CELL COUNT(AUTO) 4.56 MIL/uL (4.50-5.90); RED CELL DISTRIBUTION WIDTH 13.8 % (11.5-14.5); WHITE BLOOD COUNT (AUTO) 7.9 K/uL (4.5-11.0)
[2024-09-15 11:03] LABS: ANION GAP 7 mmol/L (8-16); CALCIUM, TOTAL 8.6 mg/dL (8.8-10.5); CARBON DIOXIDE 28 mmol/L (22-29); CHLORIDE 104 mmol/L (98-107); CREATININE 1.21 mg/dL (0.60-1.30); GLOMERULAR FILTR. RATE CALC > 60 mL/min (>60); GLUCOSE,RANDOM 89 mg/dL (70-110); POTASSIUM 4.2 mmol/L (3.5-5.1); SODIUM SERUM 139 mmol/L (136-145); UREA NITROGEN, BLOOD 19 mg/dL (7-18)
[2024-09-15 11:12] LABS: ALANINE AMINOTRANSFERASE 26 U/L (12-78); ALBUMIN 3.3 g/dL (3.4-5.0); ALKALINE PHOSPHATASE 119 U/L (46-116); ASPARTATE AMINOTRANSFERASE 28 U/L (15-37); BILIRUBIN,TOTAL 0.7 mg/dL (0.1-1.0); LIPASE 14 U/L (16-77); TOTAL PROTEIN, SERUM 7.4 g/dL (6.4-8.2)
== END | disposition home or self-care (01) ==
LOC: EMS 09:07
DX: R19.7 Diarrhea, unspecified (principal); F10.20 Alcohol dependence, uncomplicated; F41.9 Anxiety disorder, unspecified; F32.A Depression, unspecified; F20.9 Schizophrenia, unspecified; F17.210 Nicotine dependence, cigarettes, uncomplicated; F15.90 Other stimulant use, unspecified, uncomplicated; Z98.890 Other specified postprocedural states
CPT/HCPCS: 99283; 96360; 80053; 83690; 85025; 36415; J7030

== ENCOUNTER 2024-12-27 16:08 | Emergency (ER) | payer MEDICAID ==
[~2024-12-27] VITALS: Ht 172.7 cm; Wt 104.5 kg
[~2024-12-27 16:08] MED LIST changes: -LOPE-232 PO; -METH5SOL20 PO; +QUET100T PO; +QUET25TA PO; -QUET300T19 PO
[2024-12-27] MEDS ORDERED: TRAZ-257 PO ×2 (16:17→16:54)
[2024-12-27] MEDS ORDERED: HYDR50CA7 PO (16:17)
[2024-12-27] MEDS ORDERED: MULT-1203 PO (16:17)
[2024-12-27] MEDS ORDERED: FLUO-418 PO ×2 (16:17→16:54)
[2024-12-27] MEDS ORDERED: FOLI-130 PO (16:17)
[2024-12-27] MEDS ORDERED: FOLI0.4T6 PO (16:54)
[2024-12-27] MEDS ORDERED: HYDR-4584 PO (16:54)
[2024-12-27 17:02] VITALS: BP 137/91; PULSE 71; RESP 18; TEMP 98.2; O2SAT 98
== END 2024-12-27 17:09 | disposition home or self-care (01) ==
LOC: EMS 16:08
DX: F32.A Depression, unspecified (principal); F20.9 Schizophrenia, unspecified; I25.2 Old myocardial infarction; F41.9 Anxiety disorder, unspecified; K74.60 Unspecified cirrhosis of liver; F11.90 Opioid use, unspecified, uncomplicated; F17.210 Nicotine dependence, cigarettes, uncomplicated; F10.90 Alcohol use, unspecified, uncomplicated; F15.90 Other stimulant use, unspecified, uncomplicated; Z86.73 Personal history of transient ischemic attack (TIA), and cerebral infarction without residual deficits; Z79.899 Other long term (current) drug therapy; Z76.0 Encounter for issue of repeat prescription; Z98.890 Other specified postprocedural states; Y90.9 Presence of alcohol in blood, level not specified
CPT/HCPCS: 99283; Z7502

== ENCOUNTER 2025-04-23 10:47 | Emergency (ER) | payer MEDICAID ==
[~2025-04-23] VITALS: Ht 175.3 cm; Wt 90.9 kg
[~2025-04-23 10:47] MED LIST changes: +FLUO-418 PO; +FOLI-130 PO; +FOLI0.4T6 PO; +HYDR-5256 PO; +HYDR50CA7 PO; +MULT-1203 PO; -QUET100T PO; -QUET25TA PO; +TRAZ-257 PO
[2025-04-23 10:55] VITALS: BP 116/80; PULSE 80; RESP 18; TEMP 97.9; O2SAT 99
[2025-04-23] MEDS ORDERED: ARIP20TA63 PO (11:45)
[2025-04-23] MEDS ORDERED: TRAZ-257 PO (11:45)
== END 2025-04-23 12:03 | disposition home or self-care (01) ==
LOC: EMS 10:47
DX: F25.1 Schizoaffective disorder, depressive type (principal); F41.9 Anxiety disorder, unspecified; F12.90 Cannabis use, unspecified, uncomplicated; F17.210 Nicotine dependence, cigarettes, uncomplicated; F15.90 Other stimulant use, unspecified, uncomplicated; Z86.73 Personal history of transient ischemic attack (TIA), and cerebral infarction without residual deficits; Z76.0 Encounter for issue of repeat prescription; Z79.899 Other long term (current) drug therapy; Z98.890 Other specified postprocedural states
CPT/HCPCS: 99282; Z7502